=== PATIENT | female | born 1955 | race Caucasian/White ===

== ENCOUNTER 2017-12-21 05:25 | Emergency (ER) | payer OTHER ==
[~2017-12-21] VITALS: Ht 154.9 cm; Wt 65.8 kg
[2017-12-21] MEDS ORDERED: ACETAMINOPHEN 500 MG TAB PO ONE (06:30)
[2017-12-21] MEDS ORDERED: cloNIDine HCL 0.1 MG TAB PO ONE (06:30)
[2017-12-21 06:39] LABS: Basophils # (auto) 0 uL; Basophils % (auto) 0.4 % (0.0-2.0); Eosinophils # (auto) 0.1 uL; Eosinophils % (auto) 1.2 % (0.0-7.0); Hematocrit 44.1 % (36.0-46.0); Hemoglobin 15.1 g/dL (12.2-16.2); Lymphocytes # (auto) 1.9 uL; Mean Corpuscular Hemoglobin 29.3 pg (28.0-32.0); Mean Corpuscular Hgb Conc. 34.3 g/dL (32.0-36.0); Mean Corpuscular Volume 85.4 fL (80.0-100.0); Monocytes # (auto) 0.4 uL; Monocytes % (auto) 5.2 % (0.0-12.0); Neutrophils # (auto) 5.7 uL; Neutrophils % (auto) 70.2 % (37.0-80.0); Nucleated Red Blood Cells % 0.1 %; Platelet Count (auto) 323 10^3/uL (140-450); Red Blood Cells 5.16 10^6/uL (4.0-5.20); Red Cell Distribution Width 13.1 % (11.8-14.3); White Blood Cell 8.2 10^3/uL (4.4-10.8)
[2017-12-21 06:41] LABS: Urine Bacteria NONE SEEN /hpf (None Seen); Urine Blood Negative /uL (Negative); Urine Specific Gravity 1.004 (1.001-1.035); Urine WBC 2 /hpf (0 - 5)
[2017-12-21 06:45] LABS: INR 0.96 (0.9-1.15); Partial Thromboplastin Time 27.3 sec (23.78-33.04); Prothrombin Time 10.3 sec (9.27-12.13)
[2017-12-21 06:46] LABS: Alanine Aminotransferase 29 U/L (13-56); Albumin 3.6 g/dL (3.4-5.0); Anion Gap 11 (5-15); Aspartate Aminotransferase 24 U/L (15-37); BUN/Creatinine Ratio 13.9; Blood Urea Nitrogen 10 mg/dL (7-18); Calcium 8.3 mg/dL (8.5-10.1); Carbon Dioxide 24 mmol/L (21-32); Chloride 102 mmol/L (98-107); GFR African American 106 mL/min; GFR Non-African American 88 mL/min; Glucose 113 mg/dL (74-106); Magnesium 2.1 mg/dL (1.6-2.6); Potassium 3.5 mmol/L (3.5-5.1); Sodium 137 mmol/L (136-145)
[2017-12-21 06:51] LABS: Alkaline Phosphatase 120 U/L (45-117); Bilirubin, Total 0.7 mg/dL (0.2-1.0); Total Protein 8.8 g/dL (6.4-8.2)
[2017-12-21 07:33] VITALS: BP 143/91
== END 2017-12-21 09:26 | disposition home or self-care (01) ==
LOC: ER 05:39
DX: I10 Essential (primary) hypertension (principal); J32.9 Chronic sinusitis, unspecified
CPT/HCPCS: 36415; 70450; 71045; 80053; 81001; 83735; 83880; 84484; 85025; 85610; 85730; 93005

== ENCOUNTER 2022-01-14 22:04 | Emergency (ER) | payer OTHER ==
[~2022-01-14] VITALS: Ht 154.9 cm; Wt 59.0 kg
[2022-01-14 22:49] VITALS: BP 196/105
[2022-01-14] MEDS ORDERED: cloNIDine HCL 0.1 MG TAB PO ONE (23:00)
== END 2022-01-15 03:56 | disposition left against medical advice (07) ==
LOC: ER 22:04
DX: I10 Essential (primary) hypertension (principal); R07.89 Other chest pain; Z53.21 Procedure and treatment not carried out due to patient leaving prior to being seen by health care provider
CPT/HCPCS: 93005

== ENCOUNTER 2022-05-11 14:44 | Inpatient (IN) | payer OTHER ==
[~2022-05-11] VITALS: Ht 152.4 cm; Wt 57.8 kg
[2022-05-11 15:30] LABS: Basophils # (auto) 0 10 ^3/uL (0-0.2); Basophils % (auto) 0.3 % (0.0-2.0); Eosinophils # (auto) 0 10 ^3/uL (0-0.8); Hematocrit 49.4 % (36.0-46.0); Hemoglobin 16.7 g/dL (12.2-16.2); Lymphocytes # (auto) 1.1 10 ^3/uL (0.4-5.4); Lymphocytes % (auto) 21.9 % (10.0-50.0); Mean Corpuscular Hemoglobin 29.2 pg (28.0-32.0); Mean Corpuscular Hgb Conc. 33.9 g/dL (32.0-36.0); Mean Corpuscular Volume 86.1 fL (80.0-100.0); Monocytes # (auto) 0.4 10 ^3/uL (0-1.3); Monocytes % (auto) 9.2 % (0.0-12.0); Neutrophils # (auto) 3.3 10 ^3/uL (1.6-8.6); Neutrophils % (auto) 68.6 % (37.0-80.0); Nucleated Red Blood Cells % 0.2 %; Red Blood Cells 5.74 10^6/uL (4.0-5.20); Red Cell Distribution Width 12.6 % (11.8-14.3); White Blood Cell 4.8 10^3/uL (4.4-10.8)
[2022-05-11 15:59] LABS: Albumin 3.9 g/dL (3.4-5.0); BUN/Creatinine Ratio 9.8; Calcium 8.1 mg/dL (8.5-10.1); Potassium 4.1 mmol/L (3.5-5.1); Total Protein 8.4 g/dL (6.4-8.2)
[2022-05-11 16:10] LABS: Bilirubin, Total 0.5 mg/dL (0.2-1.0)
[2022-05-11 16:26] LABS: Urine Bacteria NONE SEEN /hpf (None Seen); Urine Blood 2+ /uL (Negative); Urine Specific Gravity 1.008 (1.001-1.035); Urine WBC <1 /hpf (0 - 5)
[2022-05-11] MEDS ORDERED: IOHEXOL 350 MG/ML 100ML IJ ONE ×3 (17:54→21:59)
[2022-05-11] MEDS ORDERED: AZITHROMYCIN 500MG/ 250ML 250 ML IV ONE (18:15)
[2022-05-11] MEDS ORDERED: cefTRIAXone 1GM/50ML D5W 50 ML IV ONE (18:15)
[2022-05-11] MEDS ORDERED: SODIUM CHLORIDE 0.9% 1,000 ML IV ONE (19:15)
[2022-05-11] MEDS ORDERED: ONDANSETRON HCL 4 MG/2 ML VIAL IV ONE (19:15)
[2022-05-11] MEDS ORDERED: ONDANSETRON HCL 4 MG/2 ML VIAL IV PRN (22:00)
[2022-05-11] MEDS ORDERED: SODIUM CHLORIDE 0.9% 1,000 ML IV SCH (22:00)
[2022-05-11] MEDS ORDERED: ACETAMINOPHEN 325 MG TAB PO PRN (22:00)
[2022-05-11] MEDS ORDERED: NITROGLYCERIN 0.4 MG SL TAB SL PRN (22:00)
[2022-05-11] MEDS ORDERED: cloNIDine HCL 0.1 MG TAB PO PRN (22:00)
[2022-05-11] MEDS ORDERED: MORPHINE SULFATE INJ 2 MG/ml SYRG IV PRN (22:00)
[2022-05-11] MEDS: TEMAZEPAM 15 MG CAP PO PRN (23:08)
[2022-05-12] VITALS (7 sets, daily range): BP systolic 113–135; BP diastolic 71–85
[2022-05-12] MEDS: cefTRIAXone 1GM/50ML D5W 50 ML IV SCH (09:00)
[2022-05-12 09:07] LABS: Basophils # (auto) 0 10 ^3/uL (0-0.2); Basophils % (auto) 0.1 % (0.0-2.0); Eosinophils # (auto) 0 10 ^3/uL (0-0.8); Hematocrit 46.7 % (36.0-46.0); Lymphocytes # (auto) 1.8 10 ^3/uL (0.4-5.4); Mean Corpuscular Hemoglobin 29.2 pg (28.0-32.0); Mean Corpuscular Hgb Conc. 34.3 g/dL (32.0-36.0); Mean Corpuscular Volume 85.2 fL (80.0-100.0); Monocytes # (auto) 0.6 10 ^3/uL (0-1.3); Monocytes % (auto) 6.5 % (0.0-12.0); Neutrophils # (auto) 6.8 10 ^3/uL (1.6-8.6); Neutrophils % (auto) 74.4 % (37.0-80.0); Nucleated Red Blood Cells % 0.2 %; Red Blood Cells 5.48 10^6/uL (4.0-5.20); Red Cell Distribution Width 12.9 % (11.8-14.3); White Blood Cell 9.2 10^3/uL (4.4-10.8)
[2022-05-12 09:35] LABS: BUN/Creatinine Ratio 14.5; Calcium 7.7 mg/dL (8.5-10.1); Potassium 3.7 mmol/L (3.5-5.1)
[2022-05-12] MEDS ORDERED: ATENOLOL 50 MG TAB PO SCH (10:00)
[2022-05-12] MEDS: ENOXAPARIN SOD 40 MG/0.4 ML SYRINGE SC SCH (10:00)
[2022-05-12] MEDS ORDERED: LOSARTAN POTASSIUM 50 MG TAB PO SCH (10:00)
[2022-05-12] MEDS: AZITHROMYCIN 500MG/ 250ML 250 ML IV SCH (10:18)
[2022-05-12] MEDS: PANTOPRAZOLE 40 MG TAB PO SCH (10:19)
[2022-05-12] MEDS ORDERED: MAGNESIUM SULFATE 1GM/100ML 100 ML IV ONE (13:30)
[2022-05-12] MEDS: TEMAZEPAM 15 MG CAP PO PRN (20:27)
[2022-05-12] MEDS: ASCORBIC ACID 500 MG TAB PO SCH (21:20)
[2022-05-13 05:00] VITALS: BP 121/68
[2022-05-13 06:26] LABS: Magnesium 2.3 mg/dL (1.6-2.6)
[2022-05-13 08:00] VITALS: BP 115/67
[2022-05-13] MEDS: cefTRIAXone 1GM/50ML D5W 50 ML IV SCH (08:57)
[2022-05-13 09:00] VITALS: BP 115/67
[2022-05-13] MEDS ORDERED: REMDESIVIR PER PHARMACY 0 ML IV SCH (09:45)
[2022-05-13] MEDS ORDERED: ALPRAZolam 0.25 MG TAB PO PRN (10:00)
[2022-05-13] MEDS ORDERED: DexAMETHasone SOD PHOS 10MG/1ML VIAL INJ IV SCH (10:00)
[2022-05-13] MEDS ORDERED: ATENOLOL 50 MG TAB PO SCH (10:00)
[2022-05-13] MEDS: AZITHROMYCIN 500MG/ 250ML 250 ML IV SCH (11:13)
[2022-05-13] MEDS: DexAMETHasone SOD PHOS 10MG/1ML VIAL INJ IV SCH (11:15)
[2022-05-13] MEDS: PANTOPRAZOLE 40 MG TAB PO SCH (11:16)
[2022-05-13] MEDS: ENOXAPARIN SOD 40 MG/0.4 ML SYRINGE SC SCH (11:17)
[2022-05-13] MEDS: CHOLECALCIFEROL (VITD3) 2,000 UNIT CAP/TAB PO SCH (11:17)
[2022-05-13] MEDS: ATENOLOL 25 MG TAB PO SCH (11:17)
[2022-05-13] MEDS: ASCORBIC ACID 500 MG TAB PO SCH ×2 (11:17→21:25)
[2022-05-13] MEDS: ZINC SULFATE 220mg CAP or TAB PO SCH (11:18)
[2022-05-13 13:00] VITALS: BP_SYST 114; BP_SYST 129; BP_DIAS 71; BP_DIAS 80
[2022-05-13] MEDS ORDERED: REMDESIVIR 100mg 100 MG in SODIUM CHL 0.9% 230 ML IV SCH (15:00)
[2022-05-13] MEDS ORDERED: REMDESIVIR 200 MG in NS 210ml LOADING DOSE ADULT IV ONE (15:00)
[2022-05-13 17:00] VITALS: BP 129/80
[2022-05-13] MEDS: TEMAZEPAM 15 MG CAP PO PRN (20:46)
[2022-05-13 21:59] VITALS: BP 121/67
[2022-05-14 05:00] VITALS: BP 145/85
[2022-05-14 09:00] VITALS: BP 148/79
[2022-05-14] MEDS: PANTOPRAZOLE 40 MG TAB PO SCH (10:00)
[2022-05-14] MEDS: ENOXAPARIN SOD 40 MG/0.4 ML SYRINGE SC SCH (10:00)
[2022-05-14] MEDS: cefTRIAXone 1GM/50ML D5W 50 ML IV SCH (11:01)
[2022-05-14] MEDS: DexAMETHasone SOD PHOS 10MG/1ML VIAL INJ IV SCH (11:01)
[2022-05-14] MEDS: ZINC SULFATE 220mg CAP or TAB PO SCH (11:02)
[2022-05-14] MEDS: ATENOLOL 25 MG TAB PO SCH (11:04)
[2022-05-14] MEDS: ASCORBIC ACID 500 MG TAB PO SCH ×2 (11:04→22:20)
[2022-05-14] MEDS: CHOLECALCIFEROL (VITD3) 2,000 UNIT CAP/TAB PO SCH (11:05)
[2022-05-14] MEDS: AZITHROMYCIN 500MG/ 250ML 250 ML IV SCH (11:34)
[2022-05-14] MEDS: ALBUTEROL SULF HFA 90MCG INH 200DOSE IN SCH ×2 (12:05→20:05)
[2022-05-14 13:00] VITALS: BP 134/81
[2022-05-14] MEDS: REMDESIVIR 100mg 100 MG in SODIUM CHL 0.9% 230 ML IV SCH (16:55)
[2022-05-14 17:00] VITALS: BP 129/71
[2022-05-14 18:23] VITALS: BP 129/71
[2022-05-14 22:00] VITALS: BP 141/79
[2022-05-14] MEDS ORDERED: MELATONIN 5 MG TAB PO SCH (22:00)
[2022-05-15] MEDS: TEMAZEPAM 15 MG CAP PO PRN (02:00)
[2022-05-15 05:07] VITALS: BP 145/82
[2022-05-15] MEDS: ALBUTEROL SULF HFA 90MCG INH 200DOSE IN SCH ×2 (07:20→14:30)
[2022-05-15] MEDS: ENOXAPARIN SOD 40 MG/0.4 ML SYRINGE SC SCH (08:10)
[2022-05-15] MEDS: DexAMETHasone SOD PHOS 10MG/1ML VIAL INJ IV SCH (08:15)
[2022-05-15] MEDS: cefTRIAXone 1GM/50ML D5W 50 ML IV SCH (08:15)
[2022-05-15] MEDS: ZINC SULFATE 220mg CAP or TAB PO SCH (08:15)
[2022-05-15] MEDS: AZITHROMYCIN 500MG/ 250ML 250 ML IV SCH (08:15)
[2022-05-15] MEDS: ATENOLOL 25 MG TAB PO SCH (08:16)
[2022-05-15] MEDS: CHOLECALCIFEROL (VITD3) 2,000 UNIT CAP/TAB PO SCH (08:17)
[2022-05-15 09:00] VITALS: BP 155/57
[2022-05-15] MEDS: ASCORBIC ACID 500 MG TAB PO SCH (10:00)
[2022-05-15] MEDS ORDERED: AZITTAB PO (11:10)
[2022-05-15 12:11] VITALS: BP 150/75
[2022-05-15 12:54] LABS: Albumin 2.9 g/dL (3.4-5.0); Bilirubin, Total 0.2 mg/dL (0.2-1.0); Calcium 8.1 mg/dL (8.5-10.1); Potassium 3.8 mmol/L (3.5-5.1); Total Protein 7.1 g/dL (6.4-8.2)
[2022-05-15 13:00] VITALS: BP 150/75
[2022-05-15] MEDS: REMDESIVIR 100mg 100 MG in SODIUM CHL 0.9% 230 ML IV SCH (15:00)
== END 2022-05-15 16:43 | disposition home or self-care (01) | DRG 137 ==
LOC: ER 14:47 → TELE 21:55 → TELE-EAST 05-12 02:20
PROVIDERS: ADMIT Nurse Practitioner; ATTEND Nurse Practitioner Acute Care
PROC: XW033E5 Introduction of Remdesivir Anti-infective into Peripheral Vein, Percutaneous Approach, New Technology Group 5 (ICD-10-PCS; principal; 2022-05-13)
DX: U07.1 COVID-19 (principal); J96.01 Acute respiratory failure with hypoxia; J12.82 Pneumonia due to coronavirus disease 2019; I10 Essential (primary) hypertension; E87.1 Hypo-osmolality and hyponatremia; Z82.49 Family history of ischemic heart disease and other diseases of the circulatory system
CPT/HCPCS: 36415; 36600; 71045; 71275; 80048; 80053; 80061; 81001; 82805; 83036; 83735; 83880; 84295; 84443; 84484; 85025; 87426; 93005; 93306; 94640; 96361; 96365; 96367; G0378; J0696; J1100

== ENCOUNTER 2022-05-16 17:54 | Inpatient (IN) | payer OTHER ==
[~2022-05-16] VITALS: Ht 160 cm; Wt 62.8 kg
[~2022-05-16 17:54] MED LIST: AZITTAB PO
[2022-05-16] MEDS ORDERED: SODIUM CHLORIDE 0.9% 1,000 ML IV ONE (18:00)
[2022-05-16 18:35] LABS: Basophils # (auto) 0 10 ^3/uL (0-0.2); Basophils % (auto) 0.2 % (0.0-2.0); Eosinophils # (auto) 0.1 10 ^3/uL (0-0.8); Eosinophils % (auto) 1.1 % (0.0-7.0); Hematocrit 49.3 % (36.0-46.0); Hemoglobin 16.6 g/dL (12.2-16.2); Lymphocytes # (auto) 2.6 10 ^3/uL (0.4-5.4); Lymphocytes % (auto) 39.7 % (10.0-50.0); Mean Corpuscular Hgb Conc. 33.7 g/dL (32.0-36.0); Monocytes % (auto) 14.5 % (0.0-12.0); Neutrophils # (auto) 2.9 10 ^3/uL (1.6-8.6); Neutrophils % (auto) 44.5 % (37.0-80.0); Nucleated Red Blood Cells % 0.1 %; Red Blood Cells 5.73 10^6/uL (4.0-5.20); Red Cell Distribution Width 12.7 % (11.8-14.3); White Blood Cell 6.6 10^3/uL (4.4-10.8)
[2022-05-16 18:59] LABS: Albumin 3.5 g/dL (3.4-5.0); BUN/Creatinine Ratio 16.2; Bilirubin, Total 0.3 mg/dL (0.2-1.0); Calcium 8.2 mg/dL (8.5-10.1); Potassium 4.5 mmol/L (3.5-5.1); Total Protein 7.6 g/dL (6.4-8.2)
[2022-05-16] MEDS ORDERED: cefTRIAXone 1GM/50ML D5W 50 ML IV ONE (20:30)
[2022-05-16] MEDS ORDERED: metroNIDAZOLE 500MG/100ML 100 ML IV ONE (20:30)
[2022-05-16] MEDS ORDERED: MORPHINE SULFATE INJ 2 MG/ml SYRG IV PRN ×2 (23:30)
[2022-05-16] MEDS ORDERED: HYDROcodone-ACET 5/325MG TAB PO PRN (23:30)
[2022-05-16] MEDS ORDERED: ONDANSETRON HCL 4 MG/2 ML VIAL IV PRN (23:30)
[2022-05-16] MEDS ORDERED: DOCUSATE SOD 100 MG CAP PO PRN (23:30)
[2022-05-16] MEDS ORDERED: NITROGLYCERIN 0.4 MG SL TAB SL PRN (23:30)
[2022-05-16] MEDS: SODIUM CHLORIDE 0.9% 1,000 ML IV SCH (23:45)
[2022-05-16 23:47] LABS: Urine Bacteria FEW /hpf (None Seen); Urine Blood Negative /uL (Negative); Urine Mucus FEW (None Seen); Urine Specific Gravity 1.013 (1.001-1.035); Urine WBC 8 /hpf (0 - 5)
[2022-05-17] MEDS: AZITHROMYCIN 500MG/ 250ML 250 ML IV SCH (01:02)
[2022-05-17 04:38] LABS: Basophils # (auto) 0 10 ^3/uL (0-0.2); Basophils % (auto) 0.6 % (0.0-2.0); Eosinophils # (auto) 0.1 10 ^3/uL (0-0.8); Eosinophils % (auto) 2.2 % (0.0-7.0); Hematocrit 46.4 % (36.0-46.0); Hemoglobin 15.7 g/dL (12.2-16.2); Lymphocytes # (auto) 2.5 10 ^3/uL (0.4-5.4); Lymphocytes % (auto) 38.5 % (10.0-50.0); Mean Corpuscular Hemoglobin 29.1 pg (28.0-32.0); Mean Corpuscular Hgb Conc. 33.8 g/dL (32.0-36.0); Monocytes % (auto) 15.6 % (0.0-12.0); Neutrophils # (auto) 2.7 10 ^3/uL (1.6-8.6); Neutrophils % (auto) 43.1 % (37.0-80.0); Nucleated Red Blood Cells % 0.1 %; Red Blood Cells 5.39 10^6/uL (4.0-5.20); White Blood Cell 6.4 10^3/uL (4.4-10.8)
[2022-05-17 05:39] LABS: Albumin 3.3 g/dL (3.4-5.0); Potassium 4.1 mmol/L (3.5-5.1)
[2022-05-17 05:41] LABS: BUN/Creatinine Ratio 15.4
[2022-05-17 05:43] LABS: Bilirubin, Total 0.6 mg/dL (0.2-1.0)
[2022-05-17] MEDS: FAMOTIDINE (10MG/ML) 2ML VL IV SCH ×2 (09:46→22:56)
[2022-05-17] MEDS: ASPirin 81 mg TAB PO SCH (09:46)
[2022-05-17] MEDS ORDERED: ATE50T GT (11:18)
[2022-05-17] MEDS ORDERED: CHOLECALCIFEROL (VITD3) 2,000 UNIT CAP/TAB PO ONE (13:00)
[2022-05-17] MEDS ORDERED: ZINC SULFATE 220mg CAP or TAB PO ONE (13:00)
[2022-05-17] MEDS: LORazepam 0.5 MG TAB PO PRN (13:57)
[2022-05-17] MEDS: SODIUM CHLORIDE 0.9% 1,000 ML IV SCH (17:08)
[2022-05-17 20:00] VITALS: BP 149/90
[2022-05-17 21:20] VITALS: BP 149/90
[2022-05-17 22:00] VITALS: BP 149/90
[2022-05-17] MEDS: cefTRIAXone 1GM/50ML D5W 50 ML IV SCH (22:55)
[2022-05-17] MEDS: ASCORBIC ACID 500 MG TAB PO SCH (22:56)
[2022-05-17] MEDS: LOSARTAN POTASSIUM 50 MG TAB PO SCH (22:58)
[2022-05-18] VITALS (7 sets, daily range): BP systolic 120–147; BP diastolic 81–94
[2022-05-18] MEDS: AZITHROMYCIN 500MG/ 250ML 250 ML IV SCH ×2 (00:46→23:11)
[2022-05-18] MEDS: SODIUM CHLORIDE 0.9% 1,000 ML IV SCH (09:05)
[2022-05-18] MEDS: FAMOTIDINE (10MG/ML) 2ML VL IV SCH ×2 (10:00→22:00)
[2022-05-18] MEDS: DexAMETHasone SOD PHOS 10MG/1ML VIAL INJ IV SCH (10:00)
[2022-05-18] MEDS: ASCORBIC ACID 500 MG TAB PO SCH ×2 (11:21→23:12)
[2022-05-18] MEDS: ASPirin 81 mg TAB PO SCH (11:22)
[2022-05-18] MEDS: ZINC SULFATE 220mg CAP or TAB PO SCH (11:22)
[2022-05-18] MEDS: CHOLECALCIFEROL (VITD3) 2,000 UNIT CAP/TAB PO SCH (11:22)
[2022-05-18] MEDS: LOSARTAN POTASSIUM 50 MG TAB PO SCH ×2 (11:30→23:12)
[2022-05-18] MEDS: LORazepam 0.5 MG TAB PO PRN (13:21)
[2022-05-18] MEDS: ACETAMINOPHEN 325 MG TAB PO PRN (13:28)
[2022-05-18] MEDS: cefTRIAXone 1GM/50ML D5W 50 ML IV SCH (21:09)
[2022-05-18] MEDS ORDERED: [UNRECOGNIZED DRUG - OTHER] PO SCH (22:00)
[2022-05-18] MEDS ORDERED: PATIENTS OWN MEDICATION PO SCH (22:00)
[2022-05-19] MEDS: LORazepam 0.5 MG TAB PO PRN ×2 (01:32→18:27)
[2022-05-19] MEDS: SODIUM CHLORIDE 0.9% 1,000 ML IV SCH ×2 (01:38→18:25)
[2022-05-19 05:00] VITALS: BP 110/66
[2022-05-19 09:00] VITALS: BP 120/81
[2022-05-19] MEDS: FAMOTIDINE (10MG/ML) 2ML VL IV SCH ×2 (10:00→22:00)
[2022-05-19] MEDS: CHOLECALCIFEROL (VITD3) 2,000 UNIT CAP/TAB PO SCH (10:00)
[2022-05-19] MEDS: ASCORBIC ACID 500 MG TAB PO SCH ×2 (10:00→22:46)
[2022-05-19] MEDS: DexAMETHasone SOD PHOS 10MG/1ML VIAL INJ IV SCH (10:27)
[2022-05-19] MEDS: ZINC SULFATE 220mg CAP or TAB PO SCH (10:33)
[2022-05-19] MEDS: LOSARTAN POTASSIUM 50 MG TAB PO SCH ×2 (10:34→22:47)
[2022-05-19] MEDS: ASPirin 81 mg TAB PO SCH (10:34)
[2022-05-19 13:07] VITALS: BP 134/81
[2022-05-19] MEDS ORDERED: METOPROLOL TARTRATE 1MG/1ML-5ML VIAL IV ONE (16:15)
[2022-05-19 16:22] VITALS: BP 146/103
[2022-05-19 20:00] VITALS: BP 138/91
[2022-05-19] MEDS: cefTRIAXone 1GM/50ML D5W 50 ML IV SCH (20:17)
[2022-05-19] MEDS: ACETAMINOPHEN 325 MG TAB PO PRN (20:17)
[2022-05-19 22:00] VITALS: BP 116/77
[2022-05-19] MEDS ORDERED: [UNRECOGNIZED DRUG - OTHER] PO SCH (22:00)
[2022-05-19] MEDS: AZITHROMYCIN 500MG/ 250ML 250 ML IV SCH (22:45)
[2022-05-20 04:42] VITALS: BP 138/66
[2022-05-20 09:00] VITALS: BP 111/61
[2022-05-20] MEDS: FAMOTIDINE (10MG/ML) 2ML VL IV SCH (10:00)
[2022-05-20] MEDS: LOSARTAN POTASSIUM 50 MG TAB PO SCH (10:00)
[2022-05-20] MEDS: CHOLECALCIFEROL (VITD3) 2,000 UNIT CAP/TAB PO SCH (10:12)
[2022-05-20] MEDS: ASCORBIC ACID 500 MG TAB PO SCH (10:12)
[2022-05-20] MEDS: ZINC SULFATE 220mg CAP or TAB PO SCH (10:12)
[2022-05-20] MEDS: ASPirin 81 mg TAB PO SCH (10:12)
[2022-05-20] MEDS: DexAMETHasone SOD PHOS 10MG/1ML VIAL INJ IV SCH (10:13)
[2022-05-20] MEDS ORDERED: LORA0.5T20 PO (11:05)
[2022-05-20] MEDS ORDERED: CHOL20006 PO (11:05)
[2022-05-20] MEDS ORDERED: ZINC220C10 PO (11:05)
[2022-05-20] MEDS ORDERED: AZIT500T66 PO (11:05)
[2022-05-20] MEDS ORDERED: ASCO500C49 PO (11:05)
[2022-05-20 12:12] VITALS: BP 98/56
[2022-05-20 13:00] VITALS: BP 137/73
== END 2022-05-20 13:30 | disposition home or self-care (01) | DRG 137 ==
LOC: ER 17:54 → EDUNIT# 17:54 → EDBD 17:54 → TELE 23:31 → TELE-WESTW 05-17 17:38
PROVIDERS: ADMIT Nurse Practitioner Family; ATTEND Family Medicine
DX: U07.1 COVID-19 (principal); J12.82 Pneumonia due to coronavirus disease 2019; F41.9 Anxiety disorder, unspecified; I10 Essential (primary) hypertension; N39.0 Urinary tract infection, site not specified; Z82.49 Family history of ischemic heart disease and other diseases of the circulatory system
CPT/HCPCS: 36415; 70450; 71045; 80053; 81001; 84484; 85025; 85379; 87426; 93005; 96365; 96367; G0378; J0696; J1100; J3490

== ENCOUNTER 2024-03-03 14:36 | Emergency (ER) | payer SELFPAY ==
[~2024-03-03] VITALS: Ht 152.4 cm; Wt 59.8 kg
[~2024-03-03 14:36] MED LIST changes: +ASCO500C49 PO; +ATE50T GT; +AZIT500T66 PO; +CHOL20006 PO; +LORA-1121 PO; +ZINC220C10 PO
[2024-03-03 15:08] LABS: Urine Bacteria None Seen /hpf (None Seen)
[2024-03-03 15:28] VITALS: TEMP 98.6
[2024-03-03 15:32] LABS: Urine Blood Negative /uL (Negative); Urine Clarity Clear (Clear); Urine Color Light-Yellow (Yellow); Urine Protein, UAD TRACE (Negative); Urine Specific Gravity 1.022 (1.001-1.035); Urine Urobilinogen Normal (Negative); Urine WBC 2 /hpf (0 - 5)
[2024-03-03 15:33] VITALS: PULSE 114; RESP 16; O2SAT 94
[2024-03-03] MEDS: cloNIDine HCL 0.1 MG TAB PO ONE (15:33)
[2024-03-03] MEDS ORDERED: CIPR-173 PO (16:33)
[2024-03-03 16:54] VITALS: BP 174/97; PULSE 100; RESP 19; O2SAT 98
[2024-03-09] MEDS ORDERED: LISI10TA34 PO (13:24)
== END 2024-03-03 16:32 | disposition home or self-care (01) ==
LOC: ER 14:36
DX: N39.0 Urinary tract infection, site not specified (principal); I16.0 Hypertensive urgency; R22.9 Localized swelling, mass and lump, unspecified; Z79.899 Other long term (current) drug therapy
CPT/HCPCS: 74176; 81001; 93005

== ENCOUNTER 2024-03-08 18:54 | Emergency (ER) | payer MEDICAID, OTHER ==
[~2024-03-08] VITALS: Ht 167.6 cm; Wt 60.5 kg
[~2024-03-08 18:54] MED LIST changes: +CIPR-173 PO
[2024-03-08] MEDS: cloNIDine HCL 0.1 MG TAB PO ONE (19:12)
[2024-03-08 19:37] LABS: Basophils # (auto) 0 10 ^3/uL (0-0.2); Basophils % (auto) 0.5 % (0.0-2.0); Eosinophils # (auto) 0.2 10 ^3/uL (0-0.8); Eosinophils % (auto) 1.7 % (0.0-7.0); Hematocrit 47.5 % (36.0-46.0); Hemoglobin 16.5 g/dL (12.2-16.2); Lymphocytes % (auto) 42.3 % (10.0-50.0); Mean Corpuscular Hemoglobin 30.5 pg (28.0-32.0); Mean Corpuscular Hgb Conc. 34.8 g/dL (32.0-36.0); Mean Corpuscular Volume 87.7 fL (80.0-100.0); Monocytes # (auto) 0.7 10 ^3/uL (0-1.3); Monocytes % (auto) 7.1 % (0.0-12.0); Neutrophils # (auto) 4.6 10 ^3/uL (1.6-8.6); Neutrophils % (auto) 48.4 % (37.0-80.0); Nucleated Red Blood Cells % 0.1 %; Platelet Count (auto) 325 10^3/uL (140-450); Red Blood Cells 5.41 10^6/uL (4.0-5.20); White Blood Cell 9.5 10^3/uL (4.4-10.8)
[2024-03-08 19:51] LABS: Alanine Aminotransferase 17 U/L (7-40); Albumin 4.5 g/dL (3.2-4.8); Alkaline Phosphatase 113 U/L (46-116); Anion Gap 5 (5-15); Aspartate Aminotransferase 19 U/L (13-40); BUN/Creatinine Ratio 8.8 (10.0-20.0); Bilirubin, Total 0.8 mg/dL (0.2-1.0); Blood Urea Nitrogen 6 mg/dL (9-23); Calcium 9.4 mg/dL (8.7-10.4); Carbon Dioxide 25 mmol/L (20-30); Chloride 99 mmol/L (98-107); Glucose 113 mg/dL (74-106); Potassium 3.8 mmol/L (3.5-5.1); Sodium 129 mmol/L (136-145)
[2024-03-08] MEDS ORDERED: ATOR80TA PO (20:02)
[2024-03-08] MEDS ORDERED: ASPI325T6 PO (20:03)
[2024-03-08] MEDS ORDERED: LISI2.5T47 PO (20:04)
[2024-03-08] MEDS ORDERED: LEVO500T91 PO (20:10)
[2024-03-08 21:00] VITALS: BP 167/82; PULSE 98; RESP 18; TEMP 98.7; O2SAT 97
[2024-03-09] MEDS ORDERED: LISI10TA34 PO (13:24)
== END 2024-03-08 23:36 | disposition home or self-care (01) ==
LOC: ER 18:54
DX: J18.9 Pneumonia, unspecified organism (principal); I10 Essential (primary) hypertension; H92.03 Otalgia, bilateral
CPT/HCPCS: 36415; 71045; 80053; 84484; 85025; 93005

== ENCOUNTER 2024-03-11 20:53 | Inpatient (IN) | payer MEDICAID ==
[~2024-03-11] VITALS: Ht 152.4 cm; Wt 61.4 kg
[~2024-03-11 20:53] MED LIST changes: +ASPI325T6 PO; +ATOR80TA PO; +LEVO500T91 PO; +LISI10TA34 PO; +LISI2.5T47 PO
[2024-03-11 21:11] LABS: Basophils # (auto) 0.1 10 ^3/uL (0-0.2); Basophils % (auto) 0.4 % (0.0-2.0); Eosinophils # (auto) 0.3 10 ^3/uL (0-0.8); Eosinophils % (auto) 2.5 % (0.0-7.0); Hematocrit 46.6 % (36.0-46.0); Hemoglobin 15.8 g/dL (12.2-16.2); Lymphocytes # (auto) 5.7 10 ^3/uL (0.4-5.4); Lymphocytes % (auto) 43.5 % (10.0-50.0); Mean Corpuscular Hemoglobin 30.4 pg (28.0-32.0); Mean Corpuscular Volume 89.5 fL (80.0-100.0); Monocytes # (auto) 0.9 10 ^3/uL (0-1.3); Monocytes % (auto) 6.7 % (0.0-12.0); Neutrophils # (auto) 6.1 10 ^3/uL (1.6-8.6); Neutrophils % (auto) 46.9 % (37.0-80.0); Nucleated Red Blood Cells % 0.2 %; Platelet Count (auto) 329 10^3/uL (140-450); Red Cell Distribution Width 13.7 % (11.8-14.3); White Blood Cell 13.1 10^3/uL (4.4-10.8)
[2024-03-11 21:30] LABS: Alanine Aminotransferase 24 U/L (7-40); Albumin 4.4 g/dL (3.2-4.8); Alkaline Phosphatase 163 U/L (46-116); Anion Gap 9 (5-15); Aspartate Aminotransferase 17 U/L (13-40); BUN/Creatinine Ratio 13.7 (10.0-20.0); Bilirubin, Total 0.4 mg/dL (0.2-1.0); Blood Urea Nitrogen 13 mg/dL (9-23); Calcium 9.4 mg/dL (8.7-10.4); Carbon Dioxide 23 mmol/L (20-30); Chloride 103 mmol/L (98-107); Glucose 171 mg/dL (74-106); Potassium 3.6 mmol/L (3.5-5.1)
[2024-03-11] MEDS: SODIUM CHLORIDE 0.9% 1,000 ML IV ONE (21:30)
[2024-03-11 21:31] LABS: Total Protein 7.7 g/dL (5.7-8.2)
[2024-03-11 21:32] LABS: Sodium 135 mmol/L (136-145)
[2024-03-11 21:38] LABS: Lactic Acid w/Reflex 3.3 mmol/L (0.4-2.0)
[2024-03-11 21:45] VITALS: PULSE 111; RESP 20; O2SAT 97
[2024-03-11] MEDS: LORazepam 2MG/ML-1ML VIAL IV ONE (22:13)
[2024-03-11] MEDS: cefTRIAXone 1GM/50ML D5W 50 ML IV ONE (22:16)
[2024-03-11 22:28] LABS: Urine Bacteria FEW /hpf (None Seen); Urine Blood Negative /uL (Negative); Urine Clarity Clear (Clear); Urine Color Colorless (Yellow); Urine Protein, UAD Negative (Negative); Urine Specific Gravity 1.006 (1.001-1.035); Urine Urobilinogen Normal (Negative); Urine WBC 3 /hpf (0 - 5)
[2024-03-11 22:30] LABS: Amphetamine Screen, Urine Neg (NEGATIVE); Barbiturate Scree,Urine Neg (NEGATIVE); Cannabinoid Screen, Urine Pos (NEGATIVE); Cocaine Screen, Urine Neg (NEGATIVE); Opiate Scree,Urine Neg (NEGATIVE); Phencyclidine Screen, Urine Neg (NEGATIVE)
[2024-03-11 22:56] LABS: Benzodiazephine Screen, Urine Neg (NEGATIVE)
[2024-03-12] MEDS ORDERED: hydrALAZINE HCL 20 MG/ML VL IV PRN (00:15)
[2024-03-12] MEDS: DOXYCYCLINE 100MG/250ML 250 ML IV SCH (00:15)
[2024-03-12] MEDS ORDERED: ACETAMINOPHEN 325 MG TAB PO PRN (00:15)
[2024-03-12] MEDS ORDERED: DOCUSATE SOD 100 MG CAP PO PRN (00:15)
[2024-03-12] MEDS ORDERED: ONDANSETRON HCL 4 MG/2 ML VIAL IV PRN (00:15)
[2024-03-12] MEDS: SODIUM CHLORIDE 0.9% 1,000 ML IV SCH (00:15)
[2024-03-12] MEDS: IOHEXOL 350 MG/ML 100ML IJ ONE (00:53)
[2024-03-12] MEDS ORDERED: NITROGLYCERIN 0.4 MG SL TAB SL PRN (05:30)
[2024-03-12] MEDS ORDERED: MORPHINE SULFATE INJ 2 MG/ml SYRG IV PRN (05:30)
[2024-03-12 07:40] VITALS: PULSE 94; RESP 16; O2SAT 99
[2024-03-12] MEDS: ASPirin 81 mg TAB PO SCH (10:09)
[2024-03-12] MEDS: METOPROLOL TARTRATE 25 MG TAB PO SCH (10:11)
[2024-03-12] MEDS: MAGNESIUM SULFATE 1GM/100ML 100 ML IV ONE (12:04)
[2024-03-12 14:36] LABS: COVID19 ANTIGEN SOFIA FIA NEGATIVE (NEGATIVE)
[2024-03-12 14:37] LABS: Rapid Influenza A Negative (Negative); Rapid Influenza B Negative (Negative)
[2024-03-12] MEDS: LISINOPRIL 5 MG TAB PO SCH (16:45)
[2024-03-12 17:20] VITALS: BP 158/83; PULSE 86; RESP 18; TEMP 98.9; O2SAT 95
[2024-03-12 17:50] VITALS: BP 158/83; PULSE 86; RESP 18; TEMP 98.9; O2SAT 95
[2024-03-12 20:00] VITALS: PULSE 80; PULSE 92; RESP 18; O2SAT 96
[2024-03-12] MEDS: HYDROcodone-ACET 5/325MG TAB PO PRN (20:31)
[2024-03-12 21:00] VITALS: BP 140/98; PULSE 92; RESP 18; TEMP 98.2; O2SAT 96
[2024-03-12] MEDS: ATORVASTATIN 20 MG TAB PO SCH (22:00)
[2024-03-13] MEDS: LORazepam 2MG/ML-1ML VIAL IV PRN (00:08)
[2024-03-13 01:00] VITALS: BP 145/87; PULSE 78; RESP 18; TEMP 98; O2SAT 94
[2024-03-13 05:00] VITALS: BP 139/90; PULSE 77; RESP 18; TEMP 97.7; O2SAT 97
[2024-03-13 06:41] LABS: Basophils # (auto) 0 10 ^3/uL (0-0.2); Basophils % (auto) 0.5 % (0.0-2.0); Eosinophils # (auto) 0.5 10 ^3/uL (0-0.8); Eosinophils % (auto) 7.1 % (0.0-7.0); Lymphocytes # (auto) 2.7 10 ^3/uL (0.4-5.4); Lymphocytes % (auto) 35.8 % (10.0-50.0); Mean Corpuscular Hemoglobin 30.7 pg (28.0-32.0); Mean Corpuscular Hgb Conc. 35.1 g/dL (32.0-36.0); Mean Corpuscular Volume 87.6 fL (80.0-100.0); Monocytes # (auto) 0.6 10 ^3/uL (0-1.3); Monocytes % (auto) 7.8 % (0.0-12.0); Neutrophils # (auto) 3.7 10 ^3/uL (1.6-8.6); Neutrophils % (auto) 48.8 % (37.0-80.0); Nucleated Red Blood Cells % 0.1 %; Platelet Count (auto) 236 10^3/uL (140-450); Red Blood Cells 4.57 10^6/uL (4.0-5.20); White Blood Cell 7.5 10^3/uL (4.4-10.8)
[2024-03-13 07:12] LABS: Alanine Aminotransferase 10 U/L (7-40); Alkaline Phosphatase 75 U/L (46-116); Anion Gap 6 (5-15); Aspartate Aminotransferase 13 U/L (13-40); BUN/Creatinine Ratio 15.2 (10.0-20.0); Blood Urea Nitrogen 7 mg/dL (9-23); Calcium 7.1 mg/dL (8.7-10.4); Carbon Dioxide 22 mmol/L (20-30); Chloride 108 mmol/L (98-107); Glucose 87 mg/dL (74-106); Potassium 2.9 mmol/L (3.5-5.1); Sodium 136 mmol/L (136-145)
[2024-03-13 07:13] LABS: Bilirubin, Total 0.5 mg/dL (0.2-1.0); Total Protein 5.2 g/dL (5.7-8.2)
[2024-03-13 08:00] VITALS: PULSE 72; PULSE 77; RESP 16; O2SAT 98
[2024-03-13 08:45] VITALS: BP 136/75; PULSE 70; RESP 16; TEMP 98; O2SAT 98
[2024-03-13] MEDS ORDERED: POTASSIUM CHL 20MEQ/100ML 100 ML IV SCH (08:45)
[2024-03-13] MEDS: POTASSIUM CHLORIDE 60 MEQ, LIDOCAINE 1% (LOCAL ANESTH.) 6 ML in SODIUM CHL 0.9% 500 ML IV ONE (11:06)
[2024-03-13 12:42] VITALS: BP 155/91; PULSE 80; RESP 17; TEMP 98.6; O2SAT 96
[2024-03-13] MEDS ORDERED: DOXY100C79 PO (13:07)
[2024-03-13] MEDS ORDERED: MET25T PO (13:07)
[2024-03-13 15:44] LABS: Free T3 3.64 pg/mL (2.3-4.2)
[2024-03-13 15:45] LABS: Free T4 (Free Thyroxine) 1.52 ng/dL (0.89-1.76)
[2024-03-13 16:22] VITALS: BP 139/99; PULSE 72; RESP 16; TEMP 97.6; O2SAT 98
== END 2024-03-13 18:50 | disposition home or self-care (01) | DRG 137 ==
LOC: ER 20:53 → TELE 03-12 05:25 → TELE-CENTR 03-12 17:10
PROVIDERS: ADMIT Nurse Practitioner Family; ATTEND Nurse Practitioner Acute Care
DX: J15.69 Pneumonia due to other Gram-negative bacteria (principal); I21.A1 Myocardial infarction type 2; E87.20 Acidosis, unspecified; Z20.822 Contact with and (suspected) exposure to COVID-19; E78.5 Hyperlipidemia, unspecified; F41.9 Anxiety disorder, unspecified; I16.0 Hypertensive urgency; J15.9 Unspecified bacterial pneumonia; J84.9 Interstitial pulmonary disease, unspecified; I47.19 Other supraventricular tachycardia; E07.9 Disorder of thyroid, unspecified; Z79.899 Other long term (current) drug therapy; D72.829 Elevated white blood cell count, unspecified
CPT/HCPCS: 36415; 71045; 71275; 80053; 80307; 81001; 83036; 83605; 83735; 83880; 84439; 84443; 84481; 84484; 85025; 85379; 87426; 87804; 93005; 93306; 96361; 96365; 96367; 96375; 99291; G0378; J2001; J3490

== ENCOUNTER 2024-03-15 18:45 | Emergency (ER) | payer MEDICAID ==
[~2024-03-15] VITALS: Ht 154.9 cm; Wt 59.0 kg
[~2024-03-15 18:45] MED LIST changes: -ASCO500C49 PO; -ATE50T GT; -AZIT500T66 PO; -AZITTAB PO; -CHOL20006 PO; +DOXY100C79 PO; -LISI2.5T47 PO; -LORA-1121 PO; +MET25T PO; -ZINC220C10 PO
[2024-03-15 19:25] LABS: Basophils # (auto) 0 10 ^3/uL (0-0.2); Basophils % (auto) 0.4 % (0.0-2.0); Eosinophils # (auto) 0.1 10 ^3/uL (0-0.8); Eosinophils % (auto) 1.4 % (0.0-7.0); Hematocrit 48.2 % (36.0-46.0); Hemoglobin 16.6 g/dL (12.2-16.2); Lymphocytes # (auto) 3.8 10 ^3/uL (0.4-5.4); Lymphocytes % (auto) 40.5 % (10.0-50.0); Mean Corpuscular Hemoglobin 30.4 pg (28.0-32.0); Mean Corpuscular Hgb Conc. 34.5 g/dL (32.0-36.0); Mean Corpuscular Volume 88.1 fL (80.0-100.0); Monocytes # (auto) 0.9 10 ^3/uL (0-1.3); Monocytes % (auto) 9.2 % (0.0-12.0); Neutrophils # (auto) 4.5 10 ^3/uL (1.6-8.6); Neutrophils % (auto) 48.5 % (37.0-80.0); Nucleated Red Blood Cells % 0.3 %; Platelet Count (auto) 302 10^3/uL (140-450); Red Blood Cells 5.48 10^6/uL (4.0-5.20); Red Cell Distribution Width 13.4 % (11.8-14.3); White Blood Cell 9.3 10^3/uL (4.4-10.8)
[2024-03-15 19:43] LABS: INR 1.12 (0.9-1.15); Partial Thromboplastin Time 27.8 SEC (24.5-34.5); Prothrombin Time 11.8 sec (9.3-11.8)
[2024-03-15 19:50] LABS: Alanine Aminotransferase 21 U/L (7-40); Albumin 4.4 g/dL (3.2-4.8); Alkaline Phosphatase 160 U/L (46-116); Anion Gap 8 (5-15); Aspartate Aminotransferase 21 U/L (13-40); BUN/Creatinine Ratio 11.1 (10.0-20.0); Bilirubin, Total 0.5 mg/dL (0.2-1.0); Blood Urea Nitrogen 8 mg/dL (9-23); Calcium 9.4 mg/dL (8.7-10.4); Carbon Dioxide 23 mmol/L (20-30); Chloride 99 mmol/L (98-107); Glucose 125 mg/dL (74-106); Magnesium 1.7 mg/dL (1.6-2.6); Potassium 4.4 mmol/L (3.5-5.1); Total Protein 7.7 g/dL (5.7-8.2)
[2024-03-15 20:07] LABS: Sodium 130 mmol/L (136-145)
[2024-03-15] MEDS ORDERED: LORA-1121 PO (21:20)
[2024-03-15] MEDS ORDERED: HYDR25CA PO (21:22)
[2024-03-15] MEDS: LORazepam 0.5 MG TAB PO ONE (21:51)
[2024-03-15 22:26] VITALS: BP 179/95; PULSE 109; RESP 16; TEMP 98.8; O2SAT 96
== END 2024-03-15 18:52 | disposition home or self-care (01) ==
LOC: ER 18:45
DX: R07.89 Other chest pain (principal); J98.4 Other disorders of lung; I10 Essential (primary) hypertension; F12.10 Cannabis abuse, uncomplicated
CPT/HCPCS: 36415; 71045; 80053; 83735; 83880; 84439; 84443; 84484; 85025; 85610; 85730; 93005

== ENCOUNTER 2024-09-16 10:50 | Emergency (ER) | payer MEDICAID, MEDICARE ==
[~2024-09-16] VITALS: Ht 152.4 cm; Wt 62.9 kg
[~2024-09-16 10:50] MED LIST changes: +HYDR25CA PO
--- NOTE | 2024-09-16 11:11 | ED.PDOC ---
HPI Comments HPI: Poor Historian. HPI: 69 year old female presents to the ED with chief complaint of HTN and neck pressure. Patient reports that she had went to urgent care this morning for a concern of paraspinal neck pressure and burning urination since today. Patient relays that at urgent care her blood pressure had read 190/112 and was sent to the ED for further evaluation. Patient states she read her blood pressure last night and it read in the 200s systolically. Patient notes she doubled up on her Lisinopril to 20mg this morning due to her blood pressure. Patient denies any fall, injury, dizziness, headache, chest pain, or SOB. Vitals: Temp: 97.3F BP: 177/86 HR: 100 RR: 20 spO2: 97% Past Medical History: HTN Insomnia, anxiety, TIA, pneumonia, pulmonary disease, hyperlipidemia, Past Surgical History: Denies Social History: Denies cigarette, ETOH, or drug use. Allergies: NKDA REVIEW OF SYSTEMS: CONSTITUTIONAL: Denies acute: fever, diaphoresis, chills, generalized weakness. HEAD: Denies acute: headache, photophobia Eyes: Denies acute: Double vision, vision loss, eye pain, eye discharge. EARS: Denies acute: tinnitus, hearing loss, ear discharge, ear pain, THROAT: Denies acute: sore throat, swelling, difficulty swallowing , pain with swallowing, change in voice. NECK: Denies acute: neck pain, neck swelling, stiff neck. HEART: Denies acute : chest pain, palpitations, LUNGS: Denies acute: SOB, wheezing, cough, hemoptysis ABDOMEN: Denies acute: abdominal pain, Nausea, Vomiting, diarrhea, melena , hematemesis, hematochezia SKIN: Denies acute: rash, redness, lesions, itchiness. EXTREMITIES: Denies acute: calf pain, numbness, tingling, weakness, denies pain in extremity. Denies acute: Low back pain. Neuro: Denies acute: focal neurological deficit, motor or sensory focal neurological deficit, tremors, seizure like activity, confusion, dizziness, change in mental status, loss of bowel or bladder function, cauda equina like symptoms. : Denies acute: hematuria, flank pain, increase in urinary frequency. PSYCH: Denies acute: hallucination, suicidal ideation, homicidal ideation. FEMALE: Denies acute: abnormal vaginal bleeding, foul odor, unusual discharge. PHYSICAL EXAM: General: no acute distress, awake and alert. Head: normocephalic, atraumatic. Neck: supple, trachea is midline, no swelling. Throat: Normal phonation. Eyes:, no erythema, no purulent discharge, no proptosis, no icterus. Heart: regular rate, regular rhythm, no significant murmur appreciated. Lungs: no apparent respiratory distress, Able to speak in full sentences. No wheezing, no rhonchi, no crackles. No stridors Clear to auscultation bilaterally. Abdomen: non tender to palpation, non distended, soft, no guarding, no rebound, + bowel sounds. Neuro: Awake, Alert, oriented to name, self, situation, follows commands GCS=15. Speech is normal. Skin: no petechia, no purpura, no cyanosis, non-pale, not jaundice. Lower extremities: --no - Pitting edema no deformity, no focal swelling, no calf TTP. Makes eye contact. moves all four extremities. Face: no apparent facial droop. Ambulating in the ED independently. No nuchal rigidity, Kernig's sign, Brudzinski's sign, no meningeal signs. ED COURSE: Chief Complaint: High Blood Pressure Time Seen by MD: 11:01 Primary Care Provider: None Reviewed Notes: Nurses Notes, Medications, Allergies Allergies: Coded Allergies: NO KNOWN ALLERGIES (Unverified , 10/14/15) Home Meds Active Scripts Hydroxyzine Pamoate (Vistaril) 25 Mg Cap, 1 CAP PO TID PRN for 10 Days, #30 CAP 1 Refill Prov:WERNER HEATON MD 03/15/24 Metoprolol Tartrate (Lopressor) 25 Mg Tb, 25 MG PO BID for 30 Days, #60 TAB 3 Refills Prov:KELECHI BROWN NP 03/13/24 Doxycycline (Monohydrate) (Doxycycline) 100 Mg Cap, 100 MG PO BID for 5 Days, #10 CAP Prov:KELECHI BROWN NP 03/13/24 Levofloxacin Hemihydrate (LEVAQUIN 500 MG) 500 Mg Tab, 500 MG PO DAILY for 7 Days, #7 TAB Prov:ROYA CHOWDHURY MD 03/08/24 Aspirin (Aspirin) 325 Mg Tab, 1 TAB PO DAILY, #30 TAB 5 Refills Prov:ROYA CHOWDHURY MD 03/08/24 Atorvastatin Calcium (Lipitor) 80 Mg Tab, 1 TAB PO DAILY, #30 TAB 5 Refills Prov:ROYA CHOWDHURY MD 03/08/24 Ciprofloxacin Hcl (Cipro) 500 Mg Tab, 1 TAB PO BID, #14 TAB Prov:JOSÉ MIGUEL SEPULVEDA MD 03/03/24 Reported Medications Lisinopril (Lisinopril) 10 Mg Tab, 1 TAB PO DAILY for 30 Days, #30 03/13/24 Information Source: Patient Mode of Arrival: Ambulatory Was a procedure done? Was a procedure done?: No CP Differential Dx Differential Diagnosis: N/A Differential Diagnosis: Other (DDX include renal disease, thyroid disease, electrolyte abnormality, increased salt intake, medications non-compliance, undiagnosed HTN, Hypertensive crisis, hypertensive urgency., drug toxicity.) X-Ray, Labs, Meds, VS Vital Signs Date Time Temp Pulse Resp B/P (MAP) Pulse Ox O2 Delivery O2 Flow Rate FiO2 09/16/24 16:24 97 17 95 Room Air 09/16/24 16:24 97.8 97 17 120/62 (81) 95 97.8 09/16/24 15:39 92 18 133/75 (94) 94 09/16/24 11:37 90 17 09/16/24 11:37 97.7 90 17 145/92 (109) 95 97.7 09/16/24 11:30 Room Air* 0 21 09/16/24 11:01 97.3 100 20 177/86 (116) 97 97.3 Lab Test 09/16/24 14:40 09/16/24 12:23 09/16/24 11:20 Range/Units Troponin I High Sensitivity 8 8 6 </=34 ng/L White Blood Count 7.1 4.4-10.8 10^3/uL Red Blood Count 5.41 H 4.0-5.20 10^6/uL Hemoglobin 16.6 H 12.2-16.2 g/dL Hematocrit 48.6 H 36.0-46.0 % Mean Corpuscular Volume 89.8 80.0-100.0 fL Mean Corpuscular Hemoglobin 30.6 28.0-32.0 pg Mean Corpuscular Hemoglobin Concent 34.1 32.0-36.0 g/dL Red Cell Distribution Width 13.3 11.8-14.3 % Platelet Count 272 140-450 10^3/uL Mean Platelet Volume 8.2 6.9-10.8 fL Neutrophils (%) (Auto) 56.8 37.0-80.0 % Lymphocytes (%) (Auto) 35.4 10.0-50.0 % Monocytes (%) (Auto) 6.5 0.0-12.0 % Eosinophils (%) (Auto) 0.9 0.0-7.0 % Basophils (%) (Auto) 0.4 0.0-2.0 % Neutrophils # (Auto) 4.0 1.6-8.6 10 ^3/uL Lymphocytes # (Auto) 2.5 0.4-5.4 10 ^3/uL Monocytes # (Auto) 0.5 0-1.3 10 ^3/uL Eosinophils # (Auto) 0.1 0-0.8 10 ^3/uL Basophils # (Auto) 0 0-0.2 10 ^3/uL Nucleated Red Blood Cells 0.5 % Sodium Level 131 L 136-145 mmol/L Potassium Level 3.6 3.5-5.1 mmol/L Chloride Level 97 L 98-107 mmol/L Carbon Dioxide Level 28 20-31 mmol/L Anion Gap 6 5-15 Blood Urea Nitrogen 7 L 9-23 mg/dL Creatinine 0.74 0.550-1.02 mg/dL Glomerular Filtration Rate Calc 89 >90 mL/min BUN/Creatinine Ratio 9.5 L 10.0-20.0 Serum Glucose 125 H 74-106 mg/dL Lactic Acid Level 1.3 0.4-2.0 mmol/L Calcium Level 9.6 8.7-10.4 mg/dL Total Bilirubin 0.9 0.2-1.0 mg/dL Aspartate Amino Transferase (AST) 21 13-40 U/L Alanine Aminotransferase (ALT) 18 7-40 U/L Alkaline Phosphatase 113 46-116 U/L B-Type Natriuretic Peptide 78.50 0-100 pg/mL Total Protein 8.1 5.7-8.2 g/dL Albumin 4.7 3.2-4.8 g/dL [facility] [id number] [facility] [address] Ph: [phone] DIAGNOSTIC IMAGING Diagnostic Imaging Report : [id number] Signed PATIENT: FARZANA ESCOBAR ACCT: [id number] UNIT: [id number] : 1955 LOC: ER ROOM / BED: / AGE / SEX: 69 / F ADM STATUS: REG ER SERVICE 1103 ORDERING PHYSICIAN: NAVJOT RAMOS DO PROCEDURE(s): HWOCT - HEAD WITHOUT CONTRAST REASON: HTN ORDER NUMBER(s): [id number], ACCESSION NUMBER(s): [id number] EXAM: CT HEAD WITHOUT CONTRAST HISTORY: HTN COMPARISON: HEAD WITHOUT CONTRAST on DOS: 05/16/22 TECHNIQUE: Axial images were obtained and reformatted in coronal and sagittal planes. All CT scans at this medical facility are performed using dose modulation techniques as appropriate to a performed exam including the following: Automated exposure control was utilized; adjustment of the MA and/or KV according to patient size; and use of iterative reconstruction technique. CT Dose: CTDI volume is 51.67 mGy. Dose-length product is 914.99 mGy*cm FINDINGS: Supratentorial Region: No evidence for large acute territorial ischemia. No intracranial hemorrhage is noted. Posterior Fossa: No acute abnormality. Brainstem: Unremarkable. Sellar/Suprasellar Region: Unremarkable. Ventricles, Cisterns, Sulci: Stable prominence of the bilateral ventricles. Stable frontal left parasagittal and left anterior middle cranial fossa arachnoid cysts. Orbits: Unremarkable. Paranasal Sinuses: Unremarkable. Mastoid Air Cells: Unremarkable. Vasculature: Unremarkable. Bones/Soft Tissues: No acute abnormality. Other: None. IMPRESSION: 1. No acute intracranial process. 2. Stable mild communicating hydrocephalus. ATED BY: MONICA LOUIS MD DICTATED DATE/TIME: 09/16/24 113 SIGNED BY: MONICA LOUIS MD SIGNED DATE/TIME: 09/16/244 CC: Time of 1ST Reevaluation: 12:01 Reevaluation 1ST: Unchanged Time of 2ND Reevaluation: 16:09 (The case was discussed with the neurology team (HPI, physical exam, labs and diagnostic tests that were available at the time of disposition, ED course, treatment plan) on the phone. They recommend outpatient follow up. No further interventions needed at this time. Patient is neurologically intact. No unsteady gait. No bladder dysfunction.) Reevaluation 2ND: Improved Patient Education/Counseling: Diagnosis, Treatment Family Education/Counseling: No Family Present Departure 1 Departure Time of Disposition: 15:57 Impression: Primary Impression: Hypertensive urgency Additional Impressions: Communicating hydrocephalus Dysuria Disposition: 01 HOME / SELF CARE / HOMELESS Condition: Stable Additional Instructions: Additional discharge instructions: You MUST follow-up with your primary care/family doctor in 1 to 2 days. If you are unable to see your primary care/family doctor, please return to our emergency room for re-assessment and re-evaluation in 1 to 2 days. Return to the emergency room here in our facility or to the nearest ER [facility] if your symptoms change or worsen. CONSULTATIONS: you MUST Follow-up for consultation as soon as possible with: --cardiology and neurosurgery in 1-2 days. Please call for appointment. You MUST call the consultants office yourself to make an appointment. You may need to arrange that through your insurance and/or your primary/family doctor. If you are unable to see the corporate consultant in 1 to 2 days, you must return to our emergency room (or any other ER of your choice) for re-assessment and re-evaluation. Adequate fluid hydration. Below is a copy of your radiological report for follow up: [place] [address] Ph: [phone] DIAGNOSTIC IMAGING Diagnostic Imaging Report : [id number] Signed PATIENT: FARZANA ESCOBAR ACCT: [id number] UNIT: [id number] : 1955 LOC: ER ROOM / BED: / AGE / SEX: 69 / F ADM STATUS: REG ER SERVICE 1103 ORDERING PHYSICIAN: NAVJOT RAMOS DO PROCEDURE(s): HWOCT - HEAD WITHOUT CONTRAST REASON: HTN ORDER NUMBER(s): [id number], ACCESSION NUMBER(s): [id number] EXAM: CT HEAD WITHOUT CONTRAST HISTORY: HTN COMPARISON: HEAD WITHOUT CONTRAST on DOS: 05/16/22 TECHNIQUE: Axial images were obtained and reformatted in coronal and sagittal planes. All CT scans at this medical facility are performed using dose modulation techniques as appropriate to a performed exam including the following: Automated exposure control was utilized; adjustment of the MA and/or KV according to patient size; and use of iterative reconstruction technique. CT Dose: CTDI volume is 51.67 mGy. Dose-length product is 914.99 mGy*cm FINDINGS: Supratentorial Region: No evidence for large acute territorial ischemia. No intracranial hemorrhage is noted. Posterior Fossa: No acute abnormality. Brainstem: Unremarkable. Sellar/Suprasellar Region: Unremarkable. Ventricles, Cisterns, Sulci: Stable prominence of the bilateral ventricles. Stable frontal left parasagittal and left anterior middle cranial fossa arachnoid cysts. Orbits: Unremarkable. Paranasal Sinuses: Unremarkable. Mastoid Air Cells: Unremarkable. Vasculature: Unremarkable. Bones/Soft Tissues: No acute abnormality. Other: None. IMPRESSION: 1. No acute intracranial process. 2. Stable mild communicating hydrocephalus. ATED BY: MONICA LOUIS MD DICTATED DATE/TIME: 09/16/24 1134 SIGNED BY: MONICA LOUIS MD SIGNED DATE/TIME: 09/16/24 1134 CC: e-Prescriptions Nitrofurantoin Monohydrate Mac (Macrobid) 100 Mg Cap 100 MG PO BID for 7 Days, #14 CAP Prov: NAVJOT RAMOS DO 09/16/24 Discharged With: Self Critical Care Note Critical Care Time?: Yes (35 min-critical care time only) Heart Score Heart Score: Heart Score Response (Comments) Value History Slightly Suspicious 0 EKG Normal 0 Age >65 2 Risk Factors 1 or 2 risk factors 1 Troponin Normal limit 0 Total 3 I personally scribed for NAVJOT RAMOS DO ([email or web address]) on 09/16/24 at 11:11. Electronically submitted by Clayton Nguyen ([email or web address]). I personally scribed for NAVJOT RAMOS DO ([email or web address]) on 09/16/24 at 13:29. Electronically submitted by Clayton Nguyen ([email or web address]). NAVJOT RAMOS DO Sep 16, 2024 11:11
[2024-09-16] MEDS ORDERED: NITROGLYCERIN 0.4 MG SL TAB SL ONE ×2 (11:15→11:45)
--- NOTE | 2024-09-16 11:30 | DVH ---
EXAM: XR Chest, 1 View CLINICAL INDICATION: HTN TECHNIQUE: Frontal view of the chest. COMPARISON: XY CHEST PORTABLE on DOS: 03/15/24, XY CHEST PORTABLE on DOS: 03/11/24, XY CHEST PORTABLE on DOS: 03/08/24, CHEST PORTABLE on DOS: 05/16/22, CXRP on DOS: 05/16/22 FINDINGS: LUNGS AND PLEURAL SPACES: Pulmonary congestion and edema. Pneumonia cannot be excluded. No pneumot horax. HEART: Unremarkable. No cardiomegaly. MEDIASTINUM: Unremarkable. Normal mediastinal contour. BONES/JOINTS: Unremarkable. No acute fracture. OTHER FINDINGS: . IMPRESSION: Pulmonary congestion and edema. Pneumonia cannot be excluded.
--- NOTE | 2024-09-16 11:36 | DVH ---
EXAM: CT HEAD WITHOUT CONTRAST HISTORY: HTN COMPARISON: HEAD WITHOUT CONTRAST on DOS: 05/16/22 TECHNIQUE: Axial images were obtained and reformatted in coronal and sagittal planes. All CT scans at this medical facility are performed using dose modulation techniques as appropriate t o a performed exam including the following: Automated exposure control was utilized; adjustment of th e MA and/or KV according to patient size; and use of iterative reconstruction technique. CT Dose: CTDI volume is 51.67 mGy. Dose-length product is 914.99 mGy*cm FINDINGS: Supratentorial Region: No evidence for large acute territorial ischemia. No intracranial hemorrhage is noted. Posterior Fossa: No acute abnormality. Brainstem: Unremarkable. Sellar/Suprasellar Region: Unremarkable. Ventricles, Cisterns, Sulci: Stable prominence of the bilateral ventricles. Stable frontal left par asagittal and left anterior middle cranial fossa arachnoid cysts. Orbits: Unremarkable. Paranasal Sinuses: Unremarkable. Mastoid Air Cells: Unremarkable. Vasculature: Unremarkable. Bones/Soft Tissues: No acute abnormality. Other: None. IMPRESSION: 1. No acute intracranial process. 2. Stable mild communicating hydrocephalus.
[2024-09-16 11:52] LABS: Basophils # (auto) 0 10 ^3/uL (0-0.2); Basophils % (auto) 0.4 % (0.0-2.0); Eosinophils # (auto) 0.1 10 ^3/uL (0-0.8); Eosinophils % (auto) 0.9 % (0.0-7.0); Hematocrit 48.6 % (36.0-46.0); Hemoglobin 16.6 g/dL (12.2-16.2); Lymphocytes # (auto) 2.5 10 ^3/uL (0.4-5.4); Lymphocytes % (auto) 35.4 % (10.0-50.0); Mean Corpuscular Hemoglobin 30.6 pg (28.0-32.0); Mean Corpuscular Hgb Conc. 34.1 g/dL (32.0-36.0); Mean Corpuscular Volume 89.8 fL (80.0-100.0); Monocytes # (auto) 0.5 10 ^3/uL (0-1.3); Monocytes % (auto) 6.5 % (0.0-12.0); Neutrophils % (auto) 56.8 % (37.0-80.0); Nucleated Red Blood Cells % 0.5 %; Platelet Count (auto) 272 10^3/uL (140-450); Red Blood Cells 5.41 10^6/uL (4.0-5.20); Red Cell Distribution Width 13.3 % (11.8-14.3); White Blood Cell 7.1 10^3/uL (4.4-10.8)
[2024-09-16] MEDS: NITROGLYCERIN 0.4 MG SL TAB SL ONE (12:04)
[2024-09-16 12:16] LABS: Alanine Aminotransferase 18 U/L (7-40); Albumin 4.7 g/dL (3.2-4.8); Alkaline Phosphatase 113 U/L (46-116); Anion Gap 6 (5-15); Aspartate Aminotransferase 21 U/L (13-40); BUN/Creatinine Ratio 9.5 (10.0-20.0); Bilirubin, Total 0.9 mg/dL (0.2-1.0); Blood Urea Nitrogen 7 mg/dL (9-23); Calcium 9.6 mg/dL (8.7-10.4); Carbon Dioxide 28 mmol/L (20-31); Chloride 97 mmol/L (98-107); Glucose 125 mg/dL (74-106); Potassium 3.6 mmol/L (3.5-5.1); Sodium 131 mmol/L (136-145); Total Protein 8.1 g/dL (5.7-8.2)
[2024-09-16 16:24] VITALS: BP 120/62; PULSE 97; RESP 17; TEMP 97.8; O2SAT 95
[2024-09-16] MEDS ORDERED: NITR-87 PO (18:37)
== END 2024-09-16 16:30 | disposition home or self-care (01) ==
LOC: ER 10:50
DX: I16.0 Hypertensive urgency (principal); G91.0 Communicating hydrocephalus; R30.0 Dysuria; I10 Essential (primary) hypertension; F41.9 Anxiety disorder, unspecified; E78.5 Hyperlipidemia, unspecified; J18.9 Pneumonia, unspecified organism; Z79.899 Other long term (current) drug therapy
CPT/HCPCS: 36415; 70450; 71045; 80053; 83605; 83880; 84484; 85025

== ENCOUNTER 2024-12-21 09:07 | Inpatient (IN) | payer MEDICARE, MEDICAID ==
[~2024-12-21] VITALS: Ht 152.4 cm; Wt 64.5 kg
[~2024-12-21 09:07] MED LIST changes: +NITR-87 PO
--- NOTE | 2024-12-21 10:11 | ED.PDOC ---
HPI Comments 69 year old female presents to the ED with a chief complaint of chest pain onset 4 days. Patient states she has been experiencing LT sided chest pain for the past 4 days, noticed pain worsen today, came to ED, currently rates pain 8/10. She took Tylenol for pain last night with no relief of symptoms. She is currently experiencing chest pain, shortness of breath, fatigue, palpitations. Upon ED arrival BP was 163/94. PMHx anxiety, HTN. Denies headache, dizziness, nausea, vomiting, diarrhea, abdominal pain,cold, co0ugh, congestion, sore throat. No other symptoms or modifying factors present at this time. Chief Complaint: High Blood Pressure Time Seen by MD: 10:00 Primary Care Provider: ? Reviewed Notes: Medications, Allergies Allergies: Coded Allergies: NO KNOWN ALLERGIES (Unverified , 10/14/15) Home Meds Active Scripts Nitrofurantoin Monohydrate Mac (Macrobid) 100 Mg Cap, 100 MG PO BID for 7 Days, #14 CAP Prov:NAVJOT RAMOS DO 09/16/24 Hydroxyzine Pamoate (Vistaril) 25 Mg Cap, 1 CAP PO TID PRN for 10 Days, #30 CAP 1 Refill Prov:WERNER HEATON MD 03/15/24 Metoprolol Tartrate (Lopressor) 25 Mg Tb, 25 MG PO BID for 30 Days, #60 TAB 3 Refills Prov:KELECHI BROWN NP 03/13/24 Doxycycline (Monohydrate) (Doxycycline) 100 Mg Cap, 100 MG PO BID for 5 Days, #10 CAP Prov:KELECHI BROWN NP 03/13/24 Levofloxacin Hemihydrate (LEVAQUIN 500 MG) 500 Mg Tab, 500 MG PO DAILY for 7 Days, #7 TAB Prov:ROYA CHOWDHURY MD 03/08/24 Aspirin (Aspirin) 325 Mg Tab, 1 TAB PO DAILY, #30 TAB 5 Refills Prov:ROYA CHOWDHURY MD 03/08/24 Atorvastatin Calcium (Lipitor) 80 Mg Tab, 1 TAB PO DAILY, #30 TAB 5 Refills Prov:ROYA CHOWDHURY MD 03/08/24 Ciprofloxacin Hcl (Cipro) 500 Mg Tab, 1 TAB PO BID, #14 TAB Prov:JOSÉ MIGUEL SEPULVEDA MD 8/30/24 Reported Medications Lisinopril (Lisinopril) 10 Mg Tab, 1 TAB PO DAILY for 30 Days, #30 03/13/24 Information Source: Patient Mode of Arrival: Ambulatory Severity: Moderate Timing: Days Duration: Since onset Prehospital treatment: Pain Meds (Tylenol) Location: Chest (L) Radiation: No Radiation Quality: Sharp Onset: At Rest Cardiac Risk Factors: None PE Risk Factors: None History of: None Associated Signs and Symptoms: SOB, Palpitations Past Medical History PAST MEDICAL HISTORY: Anxiety, HTN Surgical History: Denies all surgeries CHUTE TAPPER History: No Pertinent CHUTE TAPPER History Family History Family History: Reviewed,noncontributory to illness Social History Smoker: Non-Smoker Alcohol: Denies ETOH Use Drugs: Marijuana Lives In: Home Constitutional: reports: fatigue; denies: chills, diaphoresis, fever, malaise, sweats, weakness, others EENTM: denies: blurred vision, double vision, ear bleeding, ear discharge, ear drainage, ear pain, ear ringing, eye pain, eye redness, hearing loss, mouth pain, mouth swelling, nasal discharge, nose bleeding, nose congestion, nose pain, photophobia, tearing, throat pain, throat swelling, voice changes, others Respiratory: reports: shortness of breath; denies: cough, hemoptysis, orthopnea, SOB at rest, SOB with excertion, stridor, wheezing, others Cardiovascular: reports: chest pain, palpitations; denies: dizzy spells, diaphoresis, Dyspnea on exertion, edema, irregular heart beat, left arm pain, lightheadedness, PND, syncope, others Gastrointestinal: denies: abdomen distended, abdominal pain, blood streaked bow els, constipated, diarrhea, dysphagia, difficulty swallowing, hematemesis, melena, nausea, poor appetite, poor fluid intake, rectal bleeding, rectal pain, vomiting, others Genitourinary: denies: abnormal vagina bleeding, burning, dyspareunia, dysuria, flank pain, frequency, hematuria, incontinence, pain, , vagina discharge, urgency, others Neurological: denies: dizziness, fainting, headache, left sided numbness, left sided weakness, numbness, paresthesia, pre-existing deficit, right sided numbness, right sided weakness, seizure, speech problems, tingling, tremors, weakness, others Musculoskeletal: denies: back pain, gout, joint pain, joint swelling, muscle pain, muscle stiffness, neck pain, others Integumetry: denies: bruises, change in color, change in hair/nails, dryness, laceration, lesions, lumps, rash, wounds, others Allergic/Immunocompromised: denies: Difficulty Healing, Frequent Infections, Hives, Itching, others Hematologic/Lymphatic: denies: anemia, blood clots, easy bleeding, easy bruisi ng, swollen glands, others Endocrine: denies: excessive hunger, excessive sweating, excessive thirst, exce ssive urination, flushing, intolerance to cold, intolerance to heat, unexplained weight gain, unexplained weight loss, others Psychiatric: denies: anxiety, bipolar disorder, depression, hopeless, panic disorder, schizophrenia, sleepless, suicidal, others All Other Systems: Reviewed and Negative Physical Exam General Appearance: Normal HEENT: Normal ENT Inspection, Pharynx Normal, TMs Normal Neck: Full Range of Motion, Non-Tender, Normal, Normal Inspection Respiratory: Chest Non-Tender, Lungs Clear, No Accessory Muscle Use, No Respiratory Distress, Normal Breath Sounds Cardiovascular: No Edema, No JVD, No Murmur, No Gallop, Normal Peripheral Pulses, Regular Rate/Rhythm Breast Exam: Deferred Gastrointestinal: No Organomegaly, Non Tender, No Pulsatile Mass, Normal Bowel Sounds, Soft Genitalia: Deferred Pelvic: Deferred Rectal: Deferred Extremities: No calf tenderness, Normal capillary refill, Normal inspection, Normal range of motion, Non-tender, No pedal edema Musculoskeletal : Apperance: Normal Neurologic: Alert, harvest 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 Was a procedure done?: No CP Differential Dx Differential Diagnosis: MAT, CA, PAC's Differential Diagnosis: HTN Essential, HTN Accelerated Differential Diagnosis: Gastritis, Myocardial Infarction, Pericarditis, Pneumonia X-Ray, Labs, Meds, VS Vital Signs Date Time Temp Pulse Resp B/P (MAP) Pulse Ox O2 Delivery O2 Flow Rate FiO2 12/21/24 13:00 98.9 100 18 155/90 (111) 97 98.9 12/21/24 09:18 99.4 111 16 161/110 (127) 96 99.4 163/94 (117) Lab Test 12/21/24 12:45 12/21/24 11:34 12/21/24 10:20 12/21/24 09:22 Range/Units Troponin I High Sensitivity Pending < 3 L </=34 ng/L Lactic Acid Level 1.0 0.4-2.0 mmol/L White Blood Count 8.6 4.4-10.8 10^3/uL Red Blood Count 5.09 4.0-5.20 10^6/uL Hemoglobin 15.6 12.2-16.2 g/dL Hematocrit 44.4 36.0-46.0 % Mean Corpuscular Volume 87.3 80.0-100.0 fL Mean Corpuscular Hemoglobin 30.6 28.0-32.0 pg Mean Corpuscular Hemoglobin Concent 35.1 32.0-36.0 g/dL Red Cell Distribution Width 12.7 11.8-14.3 % Platelet Count 367 140-450 10^3/uL Mean Platelet Volume 7.9 6.9-10.8 fL Neutrophils (%) (Auto) 62.9 37.0-80.0 % Lymphocytes (%) (Auto) 27.5 10.0-50.0 % Monocytes (%) (Auto) 7.7 0.0-12.0 % Eosinophils (%) (Auto) 1.5 0.0-7.0 % Basophils (%) (Auto) 0.4 0.0-2.0 % Neutrophils # (Auto) 5.4 1.6-8.6 10 ^3/uL Lymphocytes # (Auto) 2.4 0.4-5.4 10 ^3/uL Monocytes # (Auto) 0.7 0-1.3 10 ^3/uL Eosinophils # (Auto) 0.1 0-0.8 10 ^3/uL Basophils # (Auto) 0 0-0.2 10 ^3/uL Nucleated Red Blood Cells 0.1 % Sodium Level 129 L 136-145 mmol/L Potassium Level 4.1 3.5-5.1 mmol/L Chloride Level 95 L 98-107 mmol/L Carbon Dioxide Level 26 20-31 mmol/L Anion Gap 8 5-15 Blood Urea Nitrogen 7 L 9-23 mg/dL Creatinine 0.72 0.550-1.02 mg/dL Glomerular Filtration Rate Calc 92 >90 mL/min BUN/Creatinine Ratio 9.7 L 10.0-20.0 Serum Glucose 119 H 74-106 mg/dL Calcium Level 9.9 8.7-10.4 mg/dL B-Type Natriuretic Peptide 55.98 0-100 pg/mL Urine Color Light-yellow Yellow Urine Clarity Clear Clear Urine pH 6.5 5.0-9.0 Urine Specific [place] 1.011 1.001-1.035 Urine Protein Negative Negative Urine Ketones Negative Negative Urine Blood Negative Negative /uL Urine Nitrite Negative Negative Urine Bilirubin Negative Negative Urine Urobilinogen Normal Negative mg/dL Urine Leukocyte Esterase Negative Negative /uL Urine RBC 1 0 - 4 /hpf Urine Microscopic WBC < 1 0-5 /HPF Urine Squamous Epithelial Cells None seen <5 /hpf Urine Bacteria None seen None Seen /hpf Urine Glucose Normal Normal mg/dL Time of 1ST Reevaluation: 10:30 Reevaluation 1ST: Unchanged Patient Education/Counseling: Diagnosis, Treatment, Prognosis Family Education/Counseling: No Family Present SEPSIS Sepsis Screen Date sepsis recognized/suspect: Dec 21, 2024 Time Sepsis recognized/suspect: 917 Recent Procedure: No On Antibiotic Therapy: No Respiratory Rate >20: No Heart Rate >90: Yes Temp<36 C (96.8 F) or >38.3 C: No SBP <90 or MAP <65 mmHG: No New Acute Mental Status Change: No Is the patient on CPAP, BIPAP,: No Physician Orders Troponin-I Hs (12/21/24 10:43) Troponin-I Hs (12/21/24 12:43) Electrocardigram (12/21/24 10:04) Chest Portable (12/21/24 10:04) Electrocardigram (12/21/24 11:04) Electrocardigram (12/21/24 13:04) Blood Culture (12/21/24 10:55) NS (12/21/24 13:15) Cefepime 2gm Extended Infusion (12/21/24 13:15) Vancomycin (12/21/24 13:15) Azithromycin Tablet (Zithromax Tablet) (12/21/24 13:15) Vital Signs Date Time Temp Pulse Resp B/P (MAP) Pulse Ox O2 Delivery O2 Flow Rate FiO2 12/21/24 13:00 98.9 100 18 155/90 (111) 97 98.9 12/21/24 09:18 99.4 111 16 161/110 (127) 96 99.4 163/94 (117) Laboratory Tests Test 12/21/24 10:20 12/21/24 11:34 White Blood Count 8.6 10^3/uL (4.4-10.8) Lactic Acid Level 1.0 mmol/L (0.4-2.0) Departure 1 Departure Time of Disposition: 13:10 (Patient presented with chest pain that was concerning for possible STEMI, ACS, PE, Pneumonia, Muscle Strain, COPD, Dissection. Data: 1. I ordered and reviewed the result of at least 3 labs including a CBC, BMP, and Troponin. 2. I independently interpreted the following tests: EKG which shows sinus arrhythmia and Chest X-ray which shows possible pneumonia.Risk:This patient has a high risk of morbidity due to further diagnostic testing or treatment and may suffer from an acute cardiac or respiratory disorder. Workup reveals _ concern for pneumonia and patient should be admitted for further workup and possible expert consultation. We will not give patient full fluid bolus with the patient appears mildly volume overl oaded.) Impression: Primary Impression: Acute chest pain Additional Impression: Pneumonia of both lower lobes Qualified Codes: J18.9 - Pneumonia, unspecified organism Disposition: ADMITTED INPATIENT Admit to: Med Surg Condition: Serious Critical Care Note Critical Care Time?: Yes Critical care comment: Acute chest pain Authorized and Performed by: Cy Triplett MD Total critical care time: Approximately 39 minutes Due to a high probability of clinically significant, life threatening deterioration, the patient required my highest level of preparedness to intervene emergently and I personally spent this critical care time directly and personally managing the patient. This critical care time included obtaining a history; examining the patient; pulse oximetry; ordering and review of studies; arranging urgent treatment with development of a management plan; evaluation of patient's response to treatment; frequent reassessment; and, discussions with other providers. This critical care time was performed to assess and manage the high probability of imminent, life-threatening deterioration that could result in multi-organ failure. It was exclusive of separately billable procedures and treating other patients and teaching time. Please see my other sections and the rest of the note for further information on patient assessment and treatment. Stability Stability form required: No Heart Score Heart Score: Heart Score Response (Comments) Value History Moderate Suspicious 1 EKG Repolarization Disturb 1 Age >65 2 Risk Factors >3 or Hx ASHD 2 Troponin Normal limit 0 Total 6 I personally scribed for CY TRIPLETT MD ([email or web address]) on 12/21/24 at 10:11. Electronically submitted by Melissa Garrison ([email or web address]). CY TRIPLETT MD Dec 21, 2024 10:11
[2024-12-21 10:15] LABS: Urine Bacteria None Seen /hpf (None Seen)
[2024-12-21 10:24] LABS: Urine Blood Negative /uL (Negative); Urine Clarity Clear (Clear); Urine Color Light-Yellow (Yellow); Urine Protein, UAD Negative (Negative); Urine Specific Gravity 1.011 (1.001-1.035); Urine Squamous Epithelial Cell None Seen /hpf (<5); Urine Urobilinogen Normal (Negative); Urine WBC < 1 /HPF (0-5); Urine pH 6.5 (5.0-9.0)
--- NOTE | 2024-12-21 10:41 | DVH ---
XY CHEST PORTABLE, HISTORY: chest pain COMPARISON: XY CHEST PORTABLE on DOS: 09/16/24, XY CHEST PORTABLE on DOS: 03/15/24, XY CHEST PORTABLE o n DOS: 03/11/24 XY CHEST PORTABLE on DOS: 09/16/24, XY CHEST PORTABLE on DOS: 03/15/24, XY CHEST PORTABLE on DOS: 4 TECHNICAL DATA: 1 view of the chest was obtained. FINDINGS: Lines and tubes: None Cardiomediastinal silhouette: normal Pulmonary vasculature: prominent Lung expansion: normal Lung airspace: Bilateral patchy airspace opacity could be edema or pneumonia. Lung interstitium: normal Pleura: normal Pneumothorax: no Bones: Unremarkable Other: no IMPRESSION: Bilateral patchy airspace opacity could be edema or pneumonia.
[2024-12-21 10:52] LABS: Basophils # (auto) 0 10 ^3/uL (0-0.2); Basophils % (auto) 0.4 % (0.0-2.0); Eosinophils # (auto) 0.1 10 ^3/uL (0-0.8); Eosinophils % (auto) 1.5 % (0.0-7.0); Hematocrit 44.4 % (36.0-46.0); Hemoglobin 15.6 g/dL (12.2-16.2); Lymphocytes # (auto) 2.4 10 ^3/uL (0.4-5.4); Lymphocytes % (auto) 27.5 % (10.0-50.0); Mean Corpuscular Hemoglobin 30.6 pg (28.0-32.0); Mean Corpuscular Hgb Conc. 35.1 g/dL (32.0-36.0); Mean Corpuscular Volume 87.3 fL (80.0-100.0); Monocytes # (auto) 0.7 10 ^3/uL (0-1.3); Monocytes % (auto) 7.7 % (0.0-12.0); Neutrophils # (auto) 5.4 10 ^3/uL (1.6-8.6); Neutrophils % (auto) 62.9 % (37.0-80.0); Nucleated Red Blood Cells % 0.1 %; Platelet Count (auto) 367 10^3/uL (140-450); Red Blood Cells 5.09 10^6/uL (4.0-5.20); Red Cell Distribution Width 12.7 % (11.8-14.3); White Blood Cell 8.6 10^3/uL (4.4-10.8)
[2024-12-21 11:04] LABS: Potassium 4.1 mmol/L (3.5-5.1)
[2024-12-21 11:05] LABS: Anion Gap 8 (5-15); Calcium 9.9 mg/dL (8.7-10.4); Carbon Dioxide 26 mmol/L (20-31)
[2024-12-21 11:06] LABS: Chloride 95 mmol/L (98-107); Sodium 129 mmol/L (136-145)
[2024-12-21 11:10] LABS: BUN/Creatinine Ratio 9.7 (10.0-20.0); Blood Urea Nitrogen 7 mg/dL (9-23); Glucose 119 mg/dL (74-106)
[2024-12-21] MEDS: LORazepam 0.5 MG TAB PO ONE (13:17)
[2024-12-21] MEDS: ACETAMINOPHEN 500 MG TAB or CAP PO ONE (13:22)
--- NOTE | 2024-12-21 13:56 | DVHHP2 ---
History of Present Illness Reason for Visit: Chest pain History of Present Illness 69-year-old female past medical history anxiety hypertension NSTEMI type 2 hyperlipidemia no surgical history chief complaint patient states she has been having more stress and anxiety because he is not working she also complain of midsternal chest pain is pressure-like in nature she has no cough no fever no swelling no calf pain patient is sad and crying on exam she does agree to see psych tele patient is taking Xanax twice a day when she states not helping with her anxiety she does not see a heart doctor by history. When evaluating patient's labs and imaging from ED lactate was 0 troponin was negative CBC was unremarkable sodium was 129 chloride was 95 glucose was 119 patient was provided Zithromax and vanco BNP was 53.98 cefepime was also given chest x-ray showed pneumonia normal saline was provided Ativan Tylenol was given reviewed echo from March 2024 EF was 50%. With these findings we will admit patient provide cardiac workup and IV antibiotics Past Medical History See HPI above Past Surgical History See HPI above Family History Reviewed, non-contributory to the management of this case. Past Social History The patient lives at home, denies smoking, alcohol or illicit drugs abuse. Review of Systems Constitutional: No: Fever, Chills, Sweats, Weakness, Malaise, Other Eyes: No: Pain, Vision change, Conjunctivae inflammation, Eyelid inflammation, Other, Redness ENT: No: Ear pain, Ear discharge, Nose pain, Nose discharge, Nose congestion, Mouth pain, Mouth swelling, Throat pain, Throat swelling, Other Respiratory: No: Cough, Dry, Shortness of breath, SOB with excertion, Wheezing, Hemoptysis, Pleuritic Pain, Sputum, Wheezing, Other Cardiovascular: Chest Pain; No: Palpitations, Orthopnea, Paroxysmal Noc. Dyspnea, Edema, Lt Headedness, Other Gastrointestinal: No: Nausea, Vomiting, Abdominal Pain, Diarrhea, Constipation, Melena, Hematochezia, Other Genitourinary: No Dysuria, No Frequency, No Incontinence, No Hematuria, No Retention, No Other Musculoskeletal: No: other, neck pain, shoulder pain, arm pain, back pain, hand pain, leg pain, foot pain Skin: No: Rash, Lesions, Jaundice, Bruising, Other Neurological: Weakness; No: Numbness, Incoordination, Change in speech, Confusion, Seizures, Other Allergies: Coded Allergies: NO KNOWN ALLERGIES (Unverified , 10/14/15) Exam Vital Signs Vital Signs Date Time Temp Pulse Resp B/P (MAP) Pulse Ox O2 Delivery O2 Flow Rate FiO2 12/21/24 13:00 98.9 100 18 155/90 (111) 97 98.9 General Appearance: Alert, Oriented X3, Cooperative, No acute distress HEENT: Atraumatic, PERRLA, EOMI, Mucous membr. moist/pink Respiratory: Normal air movement, Other (Coarse rales heard) Cardiovascular: Regular rate, Normal S1, Normal S2, No murmurs Abdominal: Normal bowel sounds, Soft, No tenderness, No hepatospenomegaly, No masses Extremities: No clubbing, No cyanosis, No edema, Normal pulses, No tenderness/swelling Skin: No rashes, No breakdown, No significant lesion Neuro: Normal speech, Strength at 5/5 X4 ext, Normal tone, Sensation intact, Cranial nerves 3-12 NL Psych/Mental Status: Mental status NL, Mood NL Labs/Xrays Chest x-ray shows pneumonia Echo reviewed from March of 2024 EF 50% I reviewed labs, imaging CT scan abdomen pelvis, EKG and all diagnostic studies on this patient from ED records and the medical chart Labs Test 12/21/24 12:45 12/21/24 11:34 12/21/24 10:20 12/21/24 09:22 Range/Units Troponin I High Sensitivity 4 </=34 ng/L Lactic Acid Level 1.0 0.4-2.0 mmol/L White Blood Count 8.6 4.4-10.8 10^3/uL Red Blood Count 5.09 4.0-5.20 10^6/uL Hemoglobin 15.6 12.2-16.2 g/dL Hematocrit 44.4 36.0-46.0 % Mean Corpuscular Volume 87.3 80.0-100.0 fL Mean Corpuscular Hemoglobin 30.6 28.0-32.0 pg Mean Corpuscular Hemoglobin Concent 35.1 32.0-36.0 g/dL Red Cell Distribution Width 12.7 11.8-14.3 % Platelet Count 367 140-450 10^3/uL Mean Platelet Volume 7.9 6.9-10.8 fL Neutrophils (%) (Auto) 62.9 37.0-80.0 % Lymphocytes (%) (Auto) 27.5 10.0-50.0 % Monocytes (%) (Auto) 7.7 0.0-12.0 % Eosinophils (%) (Auto) 1.5 0.0-7.0 % Basophils (%) (Auto) 0.4 0.0-2.0 % Neutrophils # (Auto) 5.4 1.6-8.6 10 ^3/uL Lymphocytes # (Auto) 2.4 0.4-5.4 10 ^3/uL Monocytes # (Auto) 0.7 0-1.3 10 ^3/uL Eosinophils # (Auto) 0.1 0-0.8 10 ^3/uL Basophils # (Auto) 0 0-0.2 10 ^3/uL Nucleated Red Blood Cells 0.1 % Sodium Level 129 L 136-145 mmol/L Potassium Level 4.1 3.5-5.1 mmol/L Chloride Level 95 L 98-107 mmol/L Carbon Dioxide Level 26 20-31 mmol/L Anion Gap 8 5-15 Blood Urea Nitrogen 7 L 9-23 mg/dL Creatinine 0.72 0.550-1.02 mg/dL Glomerular Filtration Rate Calc 92 >90 mL/min BUN/Creatinine Ratio 9.7 L 10.0-20.0 Serum Glucose 119 H 74-106 mg/dL Calcium Level 9.9 8.7-10.4 mg/dL B-Type Natriuretic Peptide 55.98 0-100 pg/mL Urine Color Light-yellow Yellow Urine Clarity Clear Clear Urine pH 6.5 5.0-9.0 Urine Specific [place] 1.011 1.001-1.035 Urine Protein Negative Negative Urine Ketones Negative Negative Urine Blood Negative Negative /uL Urine Nitrite Negative Negative Urine Bilirubin Negative Negative Urine Urobilinogen Normal Negative mg/dL Urine Leukocyte Esterase Negative Negative /uL Urine RBC 1 0 - 4 /hpf Urine Microscopic WBC < 1 0-5 /HPF Urine Squamous Epithelial Cells None seen <5 /hpf Urine Bacteria None seen None Seen /hpf Urine Glucose Normal Normal mg/dL Assessment/Plan Assessment/Plan acute bacterial community acquired pna found on cxr ordered ceftriaxone and azithromax o2 prn to keep sats >92% Acute chest pain likely d/t pna trop x1 negative ekg no stemi trend trop ordered asa and atorvastin ordered nitro prn chest pain consider cards consult if uptrending of trop and positive echo no hypoxia no need for ddimer ordered echo fu results acute hyponatremia ordered serum osm and urine osm, and urine sodium chronic problems anxiety htn hld fen/ppx diet hl lovenox no gi ppx since no hx of gerds or gi bleed plan admit to tele Plan discussed with: Patient Date of Service: Dec 21, 2024 Billing Provider: REID OSUNA DNP Common Visit Codes: [id number] INP/OBS CARE (HIGH) REID OSUNA DNP Dec 21, 2024 13:56
[2024-12-21] MEDS ORDERED: MORPHINE SULFATE 4 MG/ML SYR/VIAL IV PRN (14:00)
[2024-12-21] MEDS ORDERED: NITROGLYCERIN 0.4 MG SL TAB SL PRN ×2 (14:00→16:30)
[2024-12-21] MEDS ORDERED: LORazepam 0.5 MG TAB PO PRN (14:00)
[2024-12-21] MEDS ORDERED: ONDANSETRON HCL 4 MG/2 ML VIAL IV PRN (14:00)
[2024-12-21] MEDS: AZITHROMYCIN 250 MG TAB PO ONE (14:01)
[2024-12-21] MEDS: SODIUM CHLORIDE 0.9% 1,000 ML IV ONE (14:01)
[2024-12-21 14:07] VITALS: PULSE 106; RESP 20; O2SAT 95
[2024-12-21 16:00] VITALS: PULSE 110; PULSE 92; RESP 20; O2SAT 95
[2024-12-21] MEDS: VANCOMYCIN 1GM/200ML PM 200 ML IV ONE (16:10)
[2024-12-21] MEDS ORDERED: AZITHROMYCIN 500MG/ 250ML 250 ML IV ONE (16:30)
[2024-12-21] MEDS: CEFEPIME 2GM/50ML NS 50 ML IV ONE (17:53)
[2024-12-21 21:00] VITALS: BP 141/77; PULSE 96; RESP 18; TEMP 97.6; O2SAT 93
[2024-12-21] MEDS: METOPROLOL TARTRATE 25 MG TAB PO SCH (21:34)
[2024-12-21] MEDS: ATORVASTATIN 20 MG TAB PO SCH (21:34)
[2024-12-22] VITALS (9 sets, daily range): BP systolic 130–160; BP diastolic 74–88; PULSE 67–101; RESP 16–20; TEMP 98–98.5; O2SAT 93–96
[2024-12-22 05:18] LABS: Basophils # (auto) 0 10 ^3/uL (0-0.2); Basophils % (auto) 0.3 % (0.0-2.0); Eosinophils # (auto) 0.4 10 ^3/uL (0-0.8); Eosinophils % (auto) 5.5 % (0.0-7.0); Hematocrit 42.7 % (36.0-46.0); Hemoglobin 14.8 g/dL (12.2-16.2); Lymphocytes # (auto) 2.6 10 ^3/uL (0.4-5.4); Mean Corpuscular Hemoglobin 30.4 pg (28.0-32.0); Mean Corpuscular Hgb Conc. 34.6 g/dL (32.0-36.0); Mean Corpuscular Volume 87.8 fL (80.0-100.0); Monocytes # (auto) 0.7 10 ^3/uL (0-1.3); Monocytes % (auto) 9.6 % (0.0-12.0); Neutrophils # (auto) 3.9 10 ^3/uL (1.6-8.6); Neutrophils % (auto) 50.6 % (37.0-80.0); Nucleated Red Blood Cells % 0.1 %; Platelet Count (auto) 327 10^3/uL (140-450); Red Blood Cells 4.87 10^6/uL (4.0-5.20); White Blood Cell 7.7 10^3/uL (4.4-10.8)
[2024-12-22 05:28] LABS: Chloride 103 mmol/L (98-107)
[2024-12-22 05:29] LABS: Anion Gap 8 (5-15); Carbon Dioxide 23 mmol/L (20-31)
[2024-12-22 05:30] LABS: Calcium 8.6 mg/dL (8.7-10.4); Sodium 134 mmol/L (136-145)
[2024-12-22 05:34] LABS: BUN/Creatinine Ratio 11.7 (10.0-20.0); Glucose 102 mg/dL (74-106)
[2024-12-22 05:35] LABS: Blood Urea Nitrogen 7 mg/dL (9-23)
[2024-12-22] MEDS ORDERED: ALPR0.255 GT (07:09)
[2024-12-22] MEDS ORDERED: BENZ100C97 PO (07:09)
[2024-12-22] MEDS: cefTRIAXone 1GM/50ML D5W 50 ML IV SCH (10:12)
[2024-12-22] MEDS: LORazepam 0.5 MG TAB PO PRN (10:13)
[2024-12-22] MEDS: LISINOPRIL 5 MG TAB PO SCH (10:14)
[2024-12-22] MEDS: ASPirin 81 mg TAB PO SCH (10:14)
[2024-12-22] MEDS: AZITHROMYCIN 500MG/ 250ML 250 ML IV SCH (10:57)
--- NOTE | 2024-12-22 16:58 | DVHPN2 ---
Subjective I am assuming the care of the patient from today onwards who was under the care of the hospitalist team detailed sign out obtained. Changes from previous H/P or p: No Changes Eyes: No Pain, No Vision change, No Conjunctivae inflammation, No Eyelid inflammation, No Other, No Redness ENT: No Ear pain, No Ear discharge, No Nose pain, No Nose discharge, No Nose congestion, No Mouth pain, No Mouth swelling, No Throat pain, No Throat swelling, No Other Cardiovascular: Chest Pain; No Palpitations, No Orthopnea, No Paroxysmal Noc. Dyspnea, No Edema, No Lt Headedness, No Other Respiratory: No Cough, No Dry, No Shortness of breath, No SOB with excertion, No Wheezing, No Hemoptysis, No Pleuritic Pain, No Sputum, No Other Gastrointestinal: No Nausea, No Vomiting, No Abdominal Pain, No Diarrhea, No Constipation, No Melena, No Hematochezia, No Other Genitourinary: No Dysuria, No Frequency, No Incontinence, No Hematuria, No Retention, No Other Musculoskeletal: No other, No neck pain, No shoulder pain, No arm pain, No back pain, No hand pain, No leg pain, No foot pain Skin: No Rash, No Lesions, No Jaundice, No Bruising, No Other Objective Vitals Vital Signs Date Time Temp Pulse Resp B/P (MAP) Pulse Ox O2 Delivery O2 Flow Rate FiO2 12/22/24 16:21 98.0 86 16 138/74 (95) 96 98.0 12/22/24 00:41 Room Air* 0 21 Intake/Output Intake and Output 12/22/24 07:00 Intake Total 212.5 ml Balance 212.5 ml Intake IV Total 212.5 ml Exam HEENT pupils are reactive Neck is supple CV is S1-S2 regular rate and rhythm Respiratory are clear GI positive bowel sound Extremity no edema [employer]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 Medications Current Medications Medications Dose Ordered Sig/Aaron Route Start Time Stop Time Status Last Admin Dose Admin Aspirin 81 mg DAILY PO 12/22/24 10:00 12/22/24 10:14 81 MG Morphine Sulfate 2 mg Q30MP PRN IV 12/21/24 14:00 Ondansetron HCl 4 mg Q4HP PRN IV 12/21/24 14:00 Metoprolol Tartrate 25 mg BID PO 12/21/24 22:00 12/22/24 10:14 25 MG Atorvastatin Calcium 80 mg HS PO 12/21/24 22:00 12/21/24 21:34 80 MG Lisinopril 10 mg DAILY PO 12/22/24 10:00 12/22/24 10:14 10 MG Ceftriaxone Sodium 50 ml @ 100 mls/hr DAILY@09 IV 12/22/24 09:00 12/22/24 10:12 100 MLS/HR Azithromycin 250 ml @ 125 mls/hr DAILY IV 12/22/24 10:00 12/22/24 10:57 125 MLS/HR Lorazepam 0.5 mg Q6HP PRN PO 12/21/24 16:30 12/22/24 10:13 0.5 MG Nitroglycerin 0.4 mg Q5MINP PRN SL 12/21/24 16:30 Guaifenesin 200 mg Q4HP PRN PO 12/22/24 16:45 UNV Laboratory Results Laboratory Tests 12/22/24 04:49 Chemistry Test 12/22/24 04:49 Calcium Level 8.6 mg/dL (8.7-10.4) L Urinalysis Test 12/21/24 09:22 12/21/24 17:00 Urine Color Light-yellow (Yellow) Urine Clarity Clear (Clear) Urine pH 6.5 (5.0-9.0) Urine Specific [place] 1.011 (1.001-1.035) Urine Protein Negative (Negative) Urine Ketones Negative (Negative) Urine Blood Negative /uL (Negative) Urine Nitrite Negative (Negative) Urine Bilirubin Negative (Negative) Urine Urobilinogen Normal mg/dL (Negative) Urine Leukocyte Esterase Negative /uL (Negative) Urine RBC 1 /hpf (0 - 4) Urine Microscopic WBC < 1 /HPF (0-5) Urine Squamous Epithelial Cells None seen /hpf (<5) Urine Bacteria None seen /hpf (None Seen) Urine Sodium 60 mmol/L (40-220) Urine Glucose Normal mg/dL (Normal) Urine Osmolality 400 mOsm/kg Microbiology Microbiology Date/Time Source Procedure Growth Status 12/21/24 11:23 Blood Blood Culture - Preliminary NO GROWTH AFTER 24 HOURS OF INCUBATION. Resulted Assessment/Plan Assessment/Plan 69-year-old female with a known history of anxiety disorder, hypertension, dyslipidemia presented to the hospital with the chest pain headache and anxiety spell found to have 1. Chest pain rule out [place] 2. Hypertension 3. Dyslipidemia 4. Anxiety disorder -troponins are negative, tele psych consultation, Plan discussed with: Patient My Orders Orders - SANAM ATKINS MD Procedure Category Date Status Time Guaifenesin Plain PHA 12/22/24 Logged Liquid (Robitussin Stella 16:45 Date of Service: Dec 22, 2024 Billing Provider: SANAM ATKINS MD Common Visit Codes: [id number] INP/OBS CARE(MOD) SANAM ATKINS MD Dec 22, 2024 16:58
[2024-12-22] MEDS: guaiFENesin 200 MG/10 ML UD PO PRN (18:40)
--- NOTE | 2024-12-22 19:57 | DVHSR ---
APPROVED REPORT EXAM: Two-dimensional and M-mode echocardiogram with Doppler and color Doppler. Blood Pressure: 157/84 mmHg INDICATION Chest Pain RISK FACTORS Height: 5', Weight: 139 DIMENSIONS LVDd3.5 (3.8-5.7cm)LA (2D)3.8 (1.9-4.0cm)Aortic Root2.7 (2.0-3.7cm) LVDs2.6 (2.5-4.0cm)LA (MM) (1.9-4.0cm)Aortic Cusp Exc1.5 (1.5-2.0cm) EF (%) 50.0 (55-70%)Rt. Atrium3.6 (1.9-4.0cm)Asc. Aorta cm IVSd1.2 (0.7-1.1cm)RV (D) (1.8-2.4cm) PWd1.2 (0.7-1.1cm) Mitral Valve MitralMitral Stenosis E wave1.10m/sMV Mean GR.mmHg A wave1.40m/sMV Peak GR.mmHg E/A ratio0.82D MVAcm2 Aortic Valve Aortic ValveAortic Stenosis V11.00m/Inocente Mean GR.4mmHg V21.30m/Inocente Peak GR.7mmHg LVOT Diameter2.1 (1.8-2.4cm)Doppler AVA2.66cm2 AI P 1/2 Tcdl136.85ms Pulmonic Valve V20.50m/s Other Information Quality : Technically LimitedRhythm : Conclusion LV not well visualized, LVEF likely normal 50-55%. Mild LVH. Moderate diastolic dysfunction mild to moderate mr
[2024-12-23 05:00] VITALS: BP 129/81; PULSE 85; RESP 20; TEMP 97.8; O2SAT 97
[2024-12-23 08:00] VITALS: PULSE 70; PULSE 81; O2SAT 96
[2024-12-23 09:00] VITALS: BP 143/79; PULSE 87; RESP 16; TEMP 98.1; O2SAT 94
--- NOTE | 2024-12-23 11:38 | DVHINCON2 ---
Date of Service if different f: Dec 23, 2024 Consultation (SIEPER) Labs Laboratory Tests Test 12/21/24 09:22 12/21/24 10:20 12/21/24 11:34 12/21/24 12:45 Urine Color Light-yellow (Yellow) Urine Clarity Clear (Clear) Urine pH 6.5 (5.0-9.0) Urine Specific [place] 1.011 (1.001-1.035) Urine Protein Negative (Negative) Urine Ketones Negative (Negative) Urine Blood Negative /uL (Negative) Urine Nitrite Negative (Negative) Urine Bilirubin Negative (Negative) Urine Urobilinogen Normal mg/dL (Negative) Urine Leukocyte Esterase Negative /uL (Negative) Urine RBC 1 /hpf (0 - 4) Urine Microscopic WBC < 1 /HPF (0-5) Urine Squamous Epithelial Cells None seen /hpf (<5) Urine Bacteria None seen /hpf (None Seen) Urine Sodium 60 mmol/L (40-220) Urine Glucose Normal mg/dL (Normal) Magnesium Level 1.9 mg/dL (1.6-2.6) B-Type Natriuretic Peptide 55.98 pg/mL (0-100) Lactic Acid Level 1.0 mmol/L (0.4-2.0) Troponin I High Sensitivity 4 ng/L (</=34) Test 12/21/24 17:00 12/21/24 18:55 12/22/24 04:49 Urine Osmolality 400 mOsm/kg Serum Osmolality 284 mOsm/kg (278-298) White Blood Count 7.7 10^3/uL (4.4-10.8) Red Blood Count 4.87 10^6/uL (4.0-5.20) Hemoglobin 14.8 g/dL (12.2-16.2) Hematocrit 42.7 % (36.0-46.0) Mean Corpuscular Volume 87.8 fL (80.0-100.0) Mean Corpuscular Hemoglobin 30.4 pg (28.0-32.0) Mean Corpuscular Hemoglobin Concent 34.6 g/dL (32.0-36.0) Red Cell Distribution Width 13.0 % (11.8-14.3) Platelet Count 327 10^3/uL (140-450) Mean Platelet Volume 7.5 fL (6.9-10.8) Neutrophils (%) (Auto) 50.6 % (37.0-80.0) Lymphocytes (%) (Auto) 34.0 % (10.0-50.0) Monocytes (%) (Auto) 9.6 % (0.0-12.0) Eosinophils (%) (Auto) 5.5 % (0.0-7.0) Basophils (%) (Auto) 0.3 % (0.0-2.0) Neutrophils # (Auto) 3.9 10 ^3/uL (1.6-8.6) Lymphocytes # (Auto) 2.6 10 ^3/uL (0.4-5.4) Monocytes # (Auto) 0.7 10 ^3/uL (0-1.3) Eosinophils # (Auto) 0.4 10 ^3/uL (0-0.8) Basophils # (Auto) 0 10 ^3/uL (0-0.2) Nucleated Red Blood Cells 0.1 % Sodium Level 134 mmol/L (136-145) Potassium Level 4.0 mmol/L (3.5-5.1) Chloride Level 103 mmol/L (98-107) Carbon Dioxide Level 23 mmol/L (20-31) Anion Gap 8 (5-15) Blood Urea Nitrogen 7 mg/dL (9-23) Creatinine 0.60 mg/dL (0.550-1.02) Glomerular Filtration Rate Calc 98 mL/min (>90) BUN/Creatinine Ratio 11.7 (10.0-20.0) Serum Glucose 102 mg/dL (74-106) Calcium Level 8.6 mg/dL (8.7-10.4) Microbiology Date/Time Source Procedure Growth Status 12/21/24 11:23 Blood Blood Culture - Preliminary NO GROWTH AFTER 24 HOURS OF INCUBATION. Resulted Appetite: Fair Appearance: Stated age, Groomed, Clean Psychomotor activity: WNL Behavioral: Cooperative Eye contact: Appropriate Mood: Depressed, Anxious Thought processes: Linear/Goal-directed Thought content: WNL Suicidal ideations: Absent Homicidal ideations: Absent Orientation: Person, Place, Time, Situation Memory intact: Recent Intellect: Average Abstractability: WNL Concentration: Adequate Attention: Adequate Judgement: WNL Insight: Fair Vitals Vital Signs Date Time Temp Pulse Resp B/P (MAP) Pulse Ox O2 Delivery O2 Flow Rate FiO2 12/23/24 10:03 138/82 12/23/24 10:03 75 12/23/24 09:00 98.1 16 94 98.1 12/23/24 08:00 Room Air* 0 21 Current medications Current Medications Medications Dose Ordered Sig/Aaron Route Start Time Stop Time Status Last Admin Dose Admin Aspirin 81 mg DAILY PO 12/22/24 10:00 12/23/24 10:02 81 MG Morphine Sulfate 2 mg Q30MP PRN IV 12/21/24 14:00 Ondansetron HCl 4 mg Q4HP PRN IV 12/21/24 14:00 Metoprolol Tartrate 25 mg BID PO 12/21/24 22:00 12/23/24 10:03 25 MG Atorvastatin Calcium 80 mg HS PO 12/21/24 22:00 12/21/24 21:34 80 MG Lisinopril 10 mg DAILY PO 12/22/24 10:00 12/23/24 10:03 10 MG Ceftriaxone Sodium 50 ml @ 100 mls/hr DAILY@09 IV 12/22/24 09:00 12/23/24 10:04 100 MLS/HR Azithromycin 250 ml @ 125 mls/hr DAILY IV 12/22/24 10:00 12/23/24 10:04 125 MLS/HR Lorazepam 0.5 mg Q6HP PRN PO 12/21/24 16:30 12/22/24 18:34 0.5 MG Nitroglycerin 0.4 mg Q5MINP PRN SL 12/21/24 16:30 Guaifenesin 200 mg Q4HP PRN PO 12/22/24 16:45 12/22/24 18:40 200 MG Medication adjusted: Yes Diagnosis: unspecified mood disorder, generalized anxiety Plan : Pt currently declines use of antidepressants. Please provide referrals for outpatient mental services for therapy. If she later agrees, may offer duloxetine 30mg po daily Pt presently does not meet LPS hold criteria and may discharge after medical clearance. History of Present Illness Reason for Consult : Patient reporting depressed mood HPI : This is a 69-year-old Croatian-speaking female who presented to the hospital for chest pain. Patient has history of anxiety. 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 She reports feeling depressed and anxious for a long time. She does report her symptoms are worse since unemployed for three months. She is not use to being without work. She now lives with daughter and feels like a burden on the daughter. She has 5 children sometimes not feeling loved. She is future- oriented, wants to find work. She is often tearful during eval. She does feel depressed, low appetite and poor sleep. She denies any known trigger for anxiety, she worries about everything, especially about finding work. She denies suicidal or homicidal ideation. She denies auditory or visual hallucinations or paranoia thoughts. Discussed using antidepressant for treatment of her symptoms, and patient declines saying she does not want to rely on the medication for her mood. She does agree to talking to a therapist. Past Psychiatric History : She is receiving a Xanax from her PCP x three months and this has not been helping with her anxiety. She denies any prior psych admissions or 5150 holds. she denies any suicide attempts. She does not currently have a psychiatrist or therapy but does want to get connected to mental health. She denies previous trials of psychotropic medications. Past Medical History : per chart review, hx of HTN, Nstemi, hyperlipidemia Social History : She lives with her daughter. 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 She denies any drugs, alcohol or nicotine use. She denies any known family history of mental health problems. BENJA GOINS [facility] Dec 23, 2024 11:37
[2024-12-23 13:00] VITALS: BP 104/64; PULSE 89; RESP 18; TEMP 98.2; O2SAT 97
[2024-12-23] MEDS ORDERED: AUG875T PO (16:48)
[2024-12-23 17:00] VITALS: BP 156/100; PULSE 99; RESP 20; TEMP 99; O2SAT 96
[2024-12-23 17:10] VITALS: BP 142/86; PULSE 87; RESP 20; TEMP 98.6; O2SAT 98
--- NOTE | 2024-12-23 18:16 | DVHDS2 ---
Discharge Summary Date of Admission Dec 21, 2024 at 16:20 Date of Discharge: Dec 23, 2024 Labs/Diagnostic Data: Laboratory Results Test 12/22/24 04:49 12/21/24 18:55 12/21/24 17:00 12/21/24 12:45 White Blood Count 7.7 10^3/uL (4.4-10.8) Red Blood Count 4.87 10^6/uL (4.0-5.20) Hemoglobin 14.8 g/dL (12.2-16.2) Hematocrit 42.7 % (36.0-46.0) Mean Corpuscular Volume 87.8 fL (80.0-100.0) Mean Corpuscular Hemoglobin 30.4 pg (28.0-32.0) Mean Corpuscular Hemoglobin Concent 34.6 g/dL (32.0-36.0) Red Cell Distribution Width 13.0 % (11.8-14.3) Platelet Count 327 10^3/uL (140-450) Mean Platelet Volume 7.5 fL (6.9-10.8) Neutrophils (%) (Auto) 50.6 % (37.0-80.0) Lymphocytes (%) (Auto) 34.0 % (10.0-50.0) Monocytes (%) (Auto) 9.6 % (0.0-12.0) Eosinophils (%) (Auto) 5.5 % (0.0-7.0) Basophils (%) (Auto) 0.3 % (0.0-2.0) Neutrophils # (Auto) 3.9 10 ^3/uL (1.6-8.6) Lymphocytes # (Auto) 2.6 10 ^3/uL (0.4-5.4) Monocytes # (Auto) 0.7 10 ^3/uL (0-1.3) Eosinophils # (Auto) 0.4 10 ^3/uL (0-0.8) Basophils # (Auto) 0 10 ^3/uL (0-0.2) Nucleated Red Blood Cells 0.1 % Sodium Level 134 mmol/L (136-145) Potassium Level 4.0 mmol/L (3.5-5.1) Chloride Level 103 mmol/L (98-107) Carbon Dioxide Level 23 mmol/L (20-31) Anion Gap 8 (5-15) Blood Urea Nitrogen 7 mg/dL (9-23) Creatinine 0.60 mg/dL (0.550-1.02) Glomerular Filtration Rate Calc 98 mL/min (>90) BUN/Creatinine Ratio 11.7 (10.0-20.0) Serum Glucose 102 mg/dL (74-106) Calcium Level 8.6 mg/dL (8.7-10.4) Serum Osmolality 284 mOsm/kg (278-298) Urine Osmolality 400 mOsm/kg Troponin I High Sensitivity 4 ng/L (</=34) Test 12/21/24 11:34 12/21/24 10:20 12/21/24 09:22 Lactic Acid Level 1.0 mmol/L (0.4-2.0) Magnesium Level 1.9 mg/dL (1.6-2.6) B-Type Natriuretic Peptide 55.98 pg/mL (0-100) Urine Color Light-yellow (Yellow) Urine Clarity Clear (Clear) Urine pH 6.5 (5.0-9.0) Urine Specific [place] 1.011 (1.001-1.035) Urine Protein Negative (Negative) Urine Ketones Negative (Negative) Urine Blood Negative /uL (Negative) Urine Nitrite Negative (Negative) Urine Bilirubin Negative (Negative) Urine Urobilinogen Normal mg/dL (Negative) Urine Leukocyte Esterase Negative /uL (Negative) Urine RBC 1 /hpf (0 - 4) Urine Microscopic WBC < 1 /HPF (0-5) Urine Squamous Epithelial Cells None seen /hpf (<5) Urine Bacteria None seen /hpf (None Seen) Urine Sodium 60 mmol/L (40-220) Urine Glucose Normal mg/dL (Normal) Other Laboratory Tests 12/22/24 04:49 Brief Hx & Hospital Course: 69-year-old female with a known history of hypertension, dyslipidemia, anxiety disorder initially presented to the hospital with the chest pain as well as anxiety spells. Also patient complaining of headache. Patient also have known history of anxiety disorder and currently ruling out depression. Tele psych was consulted who recommended the patient to be on antidepressant but patient does not want to take it. Tele psych cleared the patient to be discharged. Patient denies any chest pain headache and troponins are negative. Patient is being discharged under stable condition. Please follow up outpatient with the PCP as well as Psychiatry in 1-2 weeks. Condition at Discharge: Stable Final Diagnosis/Problems List 1. Bilateral patchy infiltrates suspected pneumonia, clinically stable 2. Anxiety disorder 3. Headache resolved Discharge Disposition: Home SNF Discharge Will this Physician continue t: No Discharge Instruct/Medications Diet: Cardiac 2g Na,low cholest Activity: No Restrictions, As Tolerated Follow Up/Referral: Follow up with PCP in 1-2 weeks Medications: Augmentin has been described. Discharge Statement: "Patient was advised to return to the ER or call 911 if any headaches, dizziness, shortness of breath, chest pain, abdominal pain, bleeding, fevers, or worsening of medical condition. Patient was counseled about treatment plan, medications, possible side effects, patientverbalized understanding. All questions were answered to the best of my ability. This discharge took greater then 30 minutes in planning, reviewing documentation, counseling the patient, and discussing with other team members." ASSESSMENT ASSESSMENT Assessment 1. Bilateral patchy infiltrates suspected pneumonia, clinically stable 2. Anxiety disorder 3. Headache resolved Date of Service: Dec 23, 2024 Billing Provider: SANAM ATKINS MD Common Visit Codes: 15687-VHA/OBS DISCH DAY >30min SANAM ATKINS MD Dec 23, 2024 18:16
--- NOTE | 2024-12-25 10:29 | ECG ---
[facility] Test Date: 2024-12-21 Test Time: 09:26:59 Pat Name: FARZANA ESCOBAR Department: ER Room: [facility]1T B Gender: F Book Packer: : 1955 Requested By: CY CLARKE Order Number: [id number] Reading MD: Gerber Dunaway Measurements Intervals [place] Rate: 104 P: 63 NC: 190 QRS: 55 QRSD: 87 T: 74 QT: 331 QTc: 436 Interpretive Statements Sinus tachycardia LAE, consider biatrial enlargement Abnormal R-wave progression, early transition ST elevation, consider inferior injury Electronically Signed On 12-26-2024 22:28:07 PDT by Gerber Dunaway Please click the below link to view image of tracing.
== END 2024-12-23 18:20 | disposition home or self-care (01) | DRG 178 ==
LOC: ER 09:07 → OVERFLOW 16:20 → TELE-EAST 12-22 17:55
PROVIDERS: ADMIT Internal Medicine; ATTEND Internal Medicine
DX: J15.69 Pneumonia due to other Gram-negative bacteria (principal); E87.1 Hypo-osmolality and hyponatremia; J15.9 Unspecified bacterial pneumonia; I10 Essential (primary) hypertension; F39 Unspecified mood [affective] disorder; F41.1 Generalized anxiety disorder; E78.5 Hyperlipidemia, unspecified; I25.2 Old myocardial infarction; Z79.82 Long term (current) use of aspirin; Z79.899 Other long term (current) drug therapy
CPT/HCPCS: 36415; 71045; 80048; 81001; 83605; 83735; 83880; 83930; 83935; 84300; 84484; 85025; 87040; 93005; 93306; 96361; 96365; 99291; G0378; J0692

== ENCOUNTER 2025-01-02 08:53 | Inpatient (IN) | payer MEDICARE, MEDICAID ==
[~2025-01-02] VITALS: Ht 154.9 cm; Wt 66.7 kg
[~2025-01-02 08:53] MED LIST changes: +ALPR0.255 GT; -ASPI325T6 PO; -ATOR80TA PO; +AUG875T PO; +BENZ100C97 PO; -CIPR-173 PO; -DOXY100C79 PO; -HYDR25CA PO; -LEVO500T91 PO; -MET25T PO; -NITR-87 PO
[2025-01-02 09:39] LABS: Hematocrit 47.2 % (36.0-46.0); Hemoglobin 16.6 g/dL (12.2-16.2); Mean Corpuscular Hemoglobin 31.0 pg (28.0-32.0); Mean Corpuscular Volume 88.2 fL (80.0-100.0); Nucleated Red Blood Cells % 0.1 %
[2025-01-02 09:49] LABS: Potassium 4.0 mmol/L (3.5-5.1)
[2025-01-02 09:50] LABS: Anion Gap 8 (5-15); Calcium 10.1 mg/dL (8.7-10.4); Carbon Dioxide 27 mmol/L (20-31)
[2025-01-02 09:55] LABS: BUN/Creatinine Ratio 9.6 (10.0-20.0); Blood Urea Nitrogen 7 mg/dL (9-23); Chloride 93 mmol/L (98-107); Glucose 145 mg/dL (74-106); Sodium 128 mmol/L (136-145)
[2025-01-02] MEDS: LORazepam 0.5 MG TAB PO ONE (09:57)
--- NOTE | 2025-01-02 10:01 | ED.PDOC ---
HPI Comments 69 y/o F, presents to the ED for CC of high blood pressure. Patient states, she has been experiencing hypertensive blood pressure readings with associated symptoms of headache and neck pain onset, this morning (01/02/25). Patient denies dizziness, nausea, vomiting, or blurred vision. No other symptoms or modifying factors present at this time. Chief Complaint: High Blood Pressure Time Seen by MD: 09:20 Primary Care Provider: ? Reviewed Notes: Nurses Notes, Medications, Allergies Allergies: Coded Allergies: NO KNOWN ALLERGIES (Unverified , 10/14/15) Home Meds Active Scripts Amoxicillin & Pot Clavulanate (AUGMENTIN TABLET) 875 Mg Tb, 875 MG PO BID for 5 Days, #10 TAB Prov:SANAM ATKINS MD 12/23/24 Reported Medications Benzonatate (Benzonatate) 100 Mg Cap, 1-2 CAP PO TID, #60 CAP 12/22/24 Alprazolam (Alprazolam) 0.25 Mg Tab, 0.25 MG GT BID, TAB 12/22/24 Lisinopril (Lisinopril) 10 Mg Tab, 1 TAB PO DAILY for 30 Days, #30 03/13/24 Information Source: Patient Mode of Arrival: Ambulatory Severity: Moderate Timing: Hours Duration: Since onset Prehospital treatment: None Onset: At Rest Cardiac Risk Factors: HTN PE Risk Factors: None History of: None Modifying Factors: Nothing Associated Signs and Symptoms: None Past Medical History PAST MEDICAL HISTORY: Anxiety, HTN Surgical History: Denies all surgeries CHIEF ORDER DISPATCHER History: No Pertinent CHIEF ORDER DISPATCHER History Family History Family History: Reviewed,noncontributory to illness Social History Smoker: Non-Smoker Alcohol: Denies ETOH Use Drugs: Marijuana Lives In: Home Constitutional: denies: chills, diaphoresis, fatigue, fever, malaise, sweats, weakness, others EENTM: denies: blurred vision, double vision, ear bleeding, ear discharge, ear drainage, ear pain, ear ringing, eye pain, eye redness, hearing loss, mouth pain, mouth swelling, nasal discharge, nose bleeding, nose congestion, nose pain, photophobia, tearing, throat pain, throat swelling, voice changes, others Respiratory: denies: cough, hemoptysis, orthopnea, SOB at rest, shortness of breath, SOB with excertion, stridor, wheezing, others Cardiovascular: denies: chest pain, dizzy spells, diaphoresis, Dyspnea on exertion, edema, irregular heart beat, left arm pain, lightheadedness, palpitations, PND, syncope, others Gastrointestinal: denies: abdomen distended, abdominal pain, blood streaked bowels, constipated, diarrhea, dysphagia, difficulty swallowing, hematemesis, melena, nausea, poor appetite, poor fluid intake, rectal bleeding, rectal pain, vomiting, others Genitourinary: denies: abnormal vagina bleeding, burning, dyspareunia, dysuria, flank pain, frequency, hematuria, incontinence, pain, , vagina discharge, urgency, others Neurological: reports: headache; denies: dizziness, fainting, left sided numbness, left sided weakness, numbness, paresthesia, pre-existing deficit, right sided numbness, right sided weakness, seizure, speech problems, tingling, tremors, weakness, others Musculoskeletal: reports: neck pain; denies: back pain, gout, joint pain, joint swelling, muscle pain, muscle stiffness, others Integumetry: denies: bruises, change in color, change in hair/nails, dryness, laceration, lesions, lumps, rash, wounds, others Allergic/Immunocompromised: denies: Difficulty Healing, Frequent Infections, Hives, Itching, others Hematologic/Lymphatic: denies: anemia, blood clots, easy bleeding, easy bruising, swollen glands, others Endocrine: denies: excessive hunger, excessive sweating, excessive thirst, excessive urination, flushing, intolerance to cold, intolerance to heat, unexplained weight gain, unexplained weight loss, others Psychiatric: denies: anxiety, bipolar disorder, depression, hopeless, panic disorder, schizophrenia, sleepless, suicidal, others All Other Systems: Reviewed and Negative Physical Exam General Appearance: Moderate Distress HEENT: Normal ENT Inspection, Pharynx Normal, TMs Normal Neck: Full Range of Motion, Non-Tender, Normal, Normal Inspection Respiratory: Chest Non-Tender, Lungs Clear, No Accessory Muscle Use, No Respiratory Distress, Normal Breath Sounds Cardiovascular: No Edema, No JVD, No Murmur, No Gallop, Normal Peripheral Pulses, Regular Rate/Rhythm Breast Exam: Deferred Gastrointestinal: No Organomegaly, Non Tender, No Pulsatile Mass, Normal Bowel Sounds, Soft Genitalia: Deferred Pelvic: Deferred Rectal: Deferred Extremities: No calf tenderness, Normal capillary refill, Normal inspection, Normal range of motion, Non-tender, No pedal edema Musculoskeletal : Apperance: Normal Neurologic: Alert, bow making machine operator II-XII nml as Tested, No Motor Deficits, Normal Affect, Normal Mood, No Sensory Deficits Cerebellar Function: Normal Reflexes: Normal Skin: Dry, Normal Color, Warm Peripheral Pulses: 3+ Radial (R), 3+ Radial (L) Lymphatic: No Adenopathy EKG EKG : Pulse Rate (adult): 113 [place]: Normal Cardiac Rhythm: ST Block: None Hypertrophy: None ST: Normal Was a procedure done? Was a procedure done?: No CP Differential Dx Differential Diagnosis: A-fib, A-Flutter, Angina, Anxiety / Panic Attack, Atrial Dysrhythmia, Electrolyte Disorder Differential Diagnosis: HTN Essential, HTN Accelerated X-Ray, Labs, Meds, VS Vital Signs Date Time Temp Pulse Resp B/P (MAP) Pulse Ox O2 Delivery O2 Flow Rate FiO2 01/02/25 10:01 113 01/02/25 09:58 208/111 01/02/25 09:58 99.1 111 18 97 99.1 01/02/25 09:58 111 16 01/02/25 09:18 113 01/02/25 09:00 98.3 122 16 189/125 (146) 95 98.3 Lab Test 01/02/25 10:26 01/02/25 09:30 Range/Units Troponin I High Sensitivity 3 L < 3 L </=34 ng/L White Blood Count 7.1 4.4-10.8 10^3/uL Red Blood Count 5.35 H 4.0-5.20 10^6/uL Hemoglobin 16.6 H 12.2-16.2 g/dL Hematocrit 47.2 H 36.0-46.0 % Mean Corpuscular Volume 88.2 80.0-100.0 fL Mean Corpuscular Hemoglobin 31.0 28.0-32.0 pg Mean Corpuscular Hemoglobin Concent 35.2 32.0-36.0 g/dL Red Cell Distribution Width 13.1 11.8-14.3 % Platelet Count 357 140-450 10^3/uL Mean Platelet Volume 7.4 6.9-10.8 fL Neutrophils (%) (Auto) 62.1 37.0-80.0 % Lymphocytes (%) (Auto) 27.9 10.0-50.0 % Monocytes (%) (Auto) 6.8 0.0-12.0 % Eosinophils (%) (Auto) 2.4 0.0-7.0 % Basophils (%) (Auto) 0.8 0.0-2.0 % Neutrophils # (Auto) 4.4 1.6-8.6 10 ^3/uL Lymphocytes # (Auto) 2.0 0.4-5.4 10 ^3/uL Monocytes # (Auto) 0.5 0-1.3 10 ^3/uL Eosinophils # (Auto) 0.2 0-0.8 10 ^3/uL Basophils # (Auto) 0.1 0-0.2 10 ^3/uL Nucleated Red Blood Cells 0.1 % Sodium Level 128 L 136-145 mmol/L Potassium Level 4.0 3.5-5.1 mmol/L Chloride Level 93 L 98-107 mmol/L Carbon Dioxide Level 27 20-31 mmol/L Anion Gap 8 5-15 Blood Urea Nitrogen 7 L 9-23 mg/dL Creatinine 0.73 0.550-1.02 mg/dL Glomerular Filtration Rate Calc 90 >90 mL/min BUN/Creatinine Ratio 9.6 L 10.0-20.0 Serum Glucose 145 H 74-106 mg/dL Calcium Level 10.1 8.7-10.4 mg/dL Current Medications Medications (Trade) Dose Ordered Sig/Aaron Route Start Time Stop Time Status Last Admin Clonidine HCl (Catapres Tablet) 0.2 mg ONCE ONCE PO 01/02/25 09:30 01/02/25 09:31 DC 01/02/25 09:58 Lorazepam (Ativan Tablet) 2 mg ONCE ONCE PO 01/02/25 09:30 01/02/25 09:31 DC 01/02/25 09:57 [place] [id number] Ph: [phone] DIAGNOSTIC IMAGING Diagnostic Imaging Report : [id number] Signed PATIENT: FARZANA ESCOBAR ACCT: [id number] UNIT: [id number] : 1955 LOC: ER ROOM / BED: / AGE / SEX: 69 / F ADM STATUS: REG ER SERVICE 0920 ORDERING PHYSICIAN: MAU HERNÁNDEZ MD PROCEDURE(s): CXRP - CHEST PORTABLE REASON: sob ORDER NUMBER(s): [id number], ACCESSION NUMBER(s): [id number] CHEST RADIOGRAPH Indication: sob Technique: Single frontal view of the chest was obtained COMPARISON: XY CHEST PORTABLE on DOS: 12/21/24, XY CHEST PORTABLE on DOS: 09/16/24, XY CHEST PORTABLE on DOS: 03/15/24, XY CHEST PORTABLE on DOS: 03/11/24, XY CHEST PORTABLE on DOS: 03/08/24 FINDINGS: Lines and Tubes: None Lungs: Multifocal airspace disease chronic fibrotic changes. Pleura: No effusion. No pneumothorax. Cardiomediastinal contours: Unremarkable Bones: Unremarkable IMPRESSION: Chronic fibrotic changes with probable superimposed multifocal airspace disease ATED BY: YASH KAT MD DICTATED DATE/TIME: 01/02/25 1023 SIGNED BY: YASH KAT MD SIGNED DATE/TIME: 01/02/25 1023 CC: Patient alert. Complaining of having high blood pressure. Shortness a breath. Vitals stable. Recently seen in his hospital. Chest x-ray does show possible pneumonitis. Was given clonidine. Was given Ativan. She does have chest pressure. Was given steroid. Was given Levaquin. Explained to the patient. Continue to monitor. Time of 1ST Reevaluation: 09:50 Reevaluation 1ST: Unchanged Patient Education/Counseling: Diagnosis, Treatment Family Education/Counseling: No Family Present SEPSIS Sepsis Screen Physician Orders Chest Portable (01/02/25 09:20) Urinalysis (01/02/25 09:20) Troponin-I Hs (01/02/25 12:20) Electrocardigram (01/02/25 09:44) Vital Signs Date Time Temp Pulse Resp B/P (MAP) Pulse Ox O2 Delivery O2 Flow Rate FiO2 01/02/25 10:01 113 01/02/25 09:58 208/111 01/02/25 09:58 99.1 111 18 97 99.1 01/02/25 09:58 111 16 01/02/25 09:18 113 01/02/25 09:00 98.3 122 16 189/125 (146) 95 98.3 Laboratory Tests Test 01/02/25 09:30 White Blood Count 7.1 10^3/uL (4.4-10.8) Medications Medications Dose Ordered Sig/Aaron Route Start Time Stop Time Status Last Admin Dose Admin Clonidine HCl 0.2 mg ONCE ONCE PO 01/02/25 09:30 01/02/25 09:31 DC 01/02/25 09:58 Lorazepam 2 mg ONCE ONCE PO 01/02/25 09:30 01/02/25 09:31 DC 01/02/25 09:57 Departure 1 Departure Time of Disposition: 11:36 Impression: Primary Impression: Hypertensive urgency Additional Impression: Pneumonitis Disposition: ADMITTED INPATIENT Admit to: Med Surg Condition: Guarded Critical Care Note Critical Care Time?: Yes (90 min-critical care time only) Critical care comment: Blood pressure elevated Stability Stability form required: No Heart Score Heart Score: Heart Score Response (Comments) Value History Slightly Suspicious 0 EKG Normal 0 Age >65 2 Risk Factors >3 or Hx ASHD 2 Troponin Normal limit 0 Total 4 I personally scribed for MAU HERNÁNDEZ MD ([email or web address]) on 01/02/25 at 10:01. Electronically submitted by Luana Gabriel ([email or web address]). I personally scribed for MAU HERNÁNDEZ MD ([email or web address]) on 01/02/25 at 10:29. Electronically submitted by Luana Gabriel ([email or web address]). MAU HERNÁNDEZ MD Jan 02, 2025 10:01
--- NOTE | 2025-01-02 10:25 | DVH ---
CHEST RADIOGRAPH Indication: sob Technique: Single frontal view of the chest was obtained COMPARISON: XY CHEST PORTABLE on DOS: 12/21/24, XY CHEST PORTABLE on DOS: 09/16/24, XY CHEST PORTABLE o n DOS: 03/15/24, XY CHEST PORTABLE on DOS: 03/11/24, XY CHEST PORTABLE on DOS: 03/08/24 FINDINGS: Lines and Tubes: None Lungs: Multifocal airspace disease chronic fibrotic changes. Pleura: No effusion. No pneumothorax. Cardiomediastinal contours: Unremarkable Bones: Unremarkable IMPRESSION: Chronic fibrotic changes with probable superimposed multifocal airspace disease
[2025-01-02 11:57] VITALS: PULSE 92; RESP 18; O2SAT 95
[2025-01-02] MEDS: methylPREDNISolone SOD SUCC 125 MG/2 ML VL IV ONE (12:09)
[2025-01-02] MEDS ORDERED: ONDANSETRON HCL 4 MG/2 ML VIAL IV PRN (12:45)
[2025-01-02] MEDS ORDERED: MORPHINE SULFATE INJ 2 MG/ml SYRG IV PRN (12:45)
[2025-01-02] MEDS ORDERED: NITROGLYCERIN 0.4 MG SL TAB SL PRN (12:45)
[2025-01-02] MEDS ORDERED: DOCUSATE SOD 100 MG CAP PO PRN (12:45)
[2025-01-02] MEDS ORDERED: LISI-283 PO (12:49)
[2025-01-02] MEDS ORDERED: PARO10TA93 PO (12:49)
[2025-01-02] MEDS ORDERED: hydrOXYzine 25 MG TAB or CAP PO PRN (13:00)
--- NOTE | 2025-01-02 13:24 | DVHHP2 ---
History of Present Illness Reason for Visit: High blood pressure History of Present Illness Shana Monae is a 69-year-old female with past medical history of anxiety and hypertension, who came to the hospital for high blood pressure. Patient states she came to the hospital due to her blood pressure remaining elevated. She also states that she has not been sleeping well due to too many thoughts in her head and anxiety. She went to her primary care provider a couple days ago who gave her a new prescription of Paroxetine. She states she does not like it and doesn't want to take it anymore. Patient was recently admitted for similar complaints. She did have a psych consult during that visit, and an ECHO compl eted that showed her EF about 55%. Cardiovascular: HTN Psych: Anxiety Past Surgical History: None Smoke: No ALCOHOL: none Lives: with Family Domestic Violence: Neg Review of Systems Constitutional: Yes: Other (difficulty sleeping); No: Fever, Chills, Sweats, Weakness, Malaise Eyes: No: Pain, Vision change, Conjunctivae inflammation, Eyelid inflammation, Other, Redness ENT: No: Ear pain, Ear discharge, Nose pain, Nose discharge, Nose congestion, Mouth pain, Mouth swelling, Throat pain, Throat swelling Respiratory: No: Cough, Dry, Shortness of breath, SOB with excertion, Wheezing, Hemoptysis, Pleuritic Pain, Sputum, Wheezing, Other Cardiovascular: Other (hypertension); No: Chest Pain, Palpitations, Orthopnea, Paroxysmal Noc. Dyspnea, Edema, Lt Headedness Gastrointestinal: No: Nausea, Vomiting, Abdominal Pain, Diarrhea, Constipation, Melena, Hematochezia, Other Genitourinary: No Dysuria, No Frequency, No Incontinence, No Hematuria, No Retention, No Other Musculoskeletal: No: other, neck pain, shoulder pain, arm pain, back pain, hand pain, leg pain, foot pain Skin: No: Rash, Lesions, Jaundice, Bruising, Other Neurological: No: Weakness, Numbness, Incoordination, Change in speech, Confusion, Seizures, Other Allergies: Coded Allergies: NO KNOWN ALLERGIES (Unverified , 10/14/15) Medications Current Medications Medications Dose Ordered Sig/Aaron Route Start Time Stop Time Status Last Admin Dose Admin Sodium Chloride 10 ml Q8HR IV 01/02/25 14:00 UNV Acetaminophen/ Hydrocodone Bitart 1 tab Q4HP PRN PO 01/02/25 12:45 UNV Ondansetron HCl 4 mg Q4HP PRN IV 01/02/25 12:45 UNV Docusate Sodium 100 mg BIDPRN PRN PO 01/02/25 12:45 UNV Acetaminophen 650 mg Q6HP PRN PO 01/02/25 12:45 UNV Nitroglycerin 0.4 mg Q5MINP PRN SL 01/02/25 12:45 UNV Morphine Sulfate 2 mg Q30M PRN IV 01/02/25 12:45 UNV Patient Own Medication 1 tab DAILY PO 01/03/25 10:00 UNV Patient Own Medication 1 tab DAILY PO 01/03/25 10:00 UNV Clonidine HCl 0.1 mg Q6HP PRN PO 01/02/25 13:00 UNV Exam Vital Signs Vital Signs Date Time Temp Pulse Resp B/P (MAP) Pulse Ox O2 Delivery O2 Flow Rate FiO2 01/02/25 11:57 92 18 116/69 (85) 95 01/02/25 11:57 Room Air* 0 21 01/02/25 09:58 99.1 99.1 General Appearance: Alert, Oriented X3, Cooperative, mild distress HEENT: Atraumatic, PERRLA Respiratory: Clear to auscultation, Normal air movement Cardiovascular: Regular rate, Normal S1, Normal S2 Abdominal: Normal bowel sounds, Soft, No tenderness, No hepatospenomegaly Extremities: No clubbing, No cyanosis, No edema Skin: No rashes, No breakdown Neuro: Normal gait, Normal speech, Strength at 5/5 X4 ext Psych/Mental Status: Mental status NL, Mood NL Labs/Xrays Labs Test 01/02/25 10:26 01/02/25 09:30 Range/Units Troponin I High Sensitivity 3 L </=34 ng/L White Blood Count 7.1 4.4-10.8 10^3/uL Red Blood Count 5.35 H 4.0-5.20 10^6/uL Hemoglobin 16.6 H 12.2-16.2 g/dL Hematocrit 47.2 H 36.0-46.0 % Mean Corpuscular Volume 88.2 80.0-100.0 fL Mean Corpuscular Hemoglobin 31.0 28.0-32.0 pg Mean Corpuscular Hemoglobin Concent 35.2 32.0-36.0 g/dL Red Cell Distribution Width 13.1 11.8-14.3 % Platelet Count 357 140-450 10^3/uL Mean Platelet Volume 7.4 6.9-10.8 fL Neutrophils (%) (Auto) 62.1 37.0-80.0 % Lymphocytes (%) (Auto) 27.9 10.0-50.0 % Monocytes (%) (Auto) 6.8 0.0-12.0 % Eosinophils (%) (Auto) 2.4 0.0-7.0 % Basophils (%) (Auto) 0.8 0.0-2.0 % Neutrophils # (Auto) 4.4 1.6-8.6 10 ^3/uL Lymphocytes # (Auto) 2.0 0.4-5.4 10 ^3/uL Monocytes # (Auto) 0.5 0-1.3 10 ^3/uL Eosinophils # (Auto) 0.2 0-0.8 10 ^3/uL Basophils # (Auto) 0.1 0-0.2 10 ^3/uL Nucleated Red Blood Cells 0.1 % Sodium Level 128 L 136-145 mmol/L Potassium Level 4.0 3.5-5.1 mmol/L Chloride Level 93 L 98-107 mmol/L Carbon Dioxide Level 27 20-31 mmol/L Anion Gap 8 5-15 Blood Urea Nitrogen 7 L 9-23 mg/dL Creatinine 0.73 0.550-1.02 mg/dL Glomerular Filtration Rate Calc 90 >90 mL/min BUN/Creatinine Ratio 9.6 L 10.0-20.0 Serum Glucose 145 H 74-106 mg/dL Calcium Level 10.1 8.7-10.4 mg/dL CHEST RADIOGRAPH FINDINGS: Lines and Tubes: None Lungs: Multifocal airspace disease chronic fibrotic changes. Pleura: No effusion. No pneumothorax. Cardiomediastinal contours: Unremarkable Bones: Unremarkable IMPRESSION: Chronic fibrotic changes with probable superimposed multifocal airspace disease Assessment/Plan Assessment/Plan Assessment: Hypertensive urgency, Anxiety, Plan: Admit to Tele, ECHO, PRN Antihypertensives, PRN anxiety medications, Consider cardiology consult if symptoms persist, Home medications reconciled, Plan discussed with: Patient My Orders Orders - TRENT MARTE Procedure Category Date Status Time Admit ADMIT 01/02/25 Transmitted 12:45 Code Status CODE 01/02/25 Transmitted 12:45 2 Gm Sodium Diet DIET 01/02/25 Transmitted Lunch Sodium Chloride Lock PHA 01/02/25 Logged (Saline Lock Ns) 14:00 Hydrocodone-Acet PHA 01/02/25 Logged 5/325mg Tab ([place] 12:45 Ondansetron Hcl PHA 01/02/25 Logged (Zofran) 12:45 Docusate Sodium PHA 01/02/25 Logged Capsule (Colace 12:45 Complete Blood Count LAB 01/03/25 Verified 04:00 Echo 2d Mode Cardiac US 01/02/25 Logged DOP 12:45 Condition: Serious [facility] 01/02/25 In Process 12:45 Acetaminophen Tablet [facility] 01/02/25 Logged (Tylenol Tablet) 12:45 Nitroglycerin [facility] 01/02/25 Logged Sublingual (Ntrostat 12:45 Morphine Sulfate PHA 01/02/25 Logged Injection 12:45 Stat Ekg For Chest [facility] 01/02/25 In Process Pain 12:45 Notify Md Of Changes [facility] 01/02/25 In Process From Base 12:45 Human Resources Records Clerk For [facility] 01/02/25 In Process 24 Hours 12:45 Emergency Dysrhythmia [facility] 01/02/25 In Process Protocol 12:45 Rhythm Strips Once [facility] 01/02/25 In Process Every Shift 12:45 Oxygen By Nasal RT 01/02/25 Transmitted Cannula 12:45 (Nf) Lisinopril & PHA 01/03/25 Logged Hydrochlorothiazi (Lis 10:00 (Nf) Paroxetine PHA 01/03/25 Logged Hydrochloride 10:00 Clonidine Hcl Tablet [facility] 01/02/25 Logged (Catapres Tablet) 13:00 Date of Service: Jan 02, 2025 Billing Provider: TRENT MARTE Common Visit Codes: [id number] INP/OBS CARE (MOD) TRENT MARTE Jan 02, 2025 13:24
[2025-01-02] MEDS: SODIUM CHLOR 0.9% PF (SALINE LOCK) 10ML VIAL/SYR IV SCH (14:09)
[2025-01-02] MEDS: HYDROcodone-ACET 5/325MG TAB PO PRN (18:30)
[2025-01-02 22:41] VITALS: PULSE 95; RESP 17
[2025-01-02] MEDS: TEMAZEPAM 15 MG CAP PO PRN (23:20)
[2025-01-03] VITALS (9 sets, daily range): BP systolic 114–155; BP diastolic 70–88; PULSE 65–96; RESP 14–18; TEMP 97.5–98.8; O2SAT 94–98
[2025-01-03 07:00] LABS: Hematocrit 43.0 % (36.0-46.0); Hemoglobin 15.1 g/dL (12.2-16.2); Mean Corpuscular Hemoglobin 30.5 pg (28.0-32.0); Mean Corpuscular Volume 87.1 fL (80.0-100.0); Nucleated Red Blood Cells % 0.6 %
[2025-01-03] MEDS: hydroCHLOROthiazide 25 MG TAB PO SCH (09:51)
[2025-01-03] MEDS: PARoxetine 20 MG TAB PO SCH (09:52)
[2025-01-03] MEDS: LISINOPRIL 5 MG TAB PO SCH (09:52)
[2025-01-03] MEDS: SODIUM CHLORIDE 0.9% 1,000 ML IV SCH (10:00)
[2025-01-03] MEDS ORDERED: PATIENTS OWN MEDICATION (Lisinopril & Hydrochlorothiazi (Lisinopril/Hydrochlorothi) 1 TAB) PO SCH (10:00)
[2025-01-03] MEDS ORDERED: PATIENTS OWN MEDICATION (Paroxetine Hydrochloride 1 TAB) PO SCH (10:00)
[2025-01-03] MEDS: ACETAMINOPHEN 325 MG TAB PO PRN (12:01)
--- NOTE | 2025-01-03 14:14 | DVHPNRES ---
Progress Note Date Seen: Jan 03, 2025 Resident Creating Document: JEFFERY CARMONA RESIDENT Medical Necessity Reason Pt with a Central, PICC or Fol: No Subjective Review of Systems Shana Monae is a 69-year-old female with past medical history of anxiety and hypertension, who came to the hospital for high blood pressure. Patient states she came to the hospital due to her blood pressure remaining elevated. She also states that she has not been sleeping well due to too many thoughts in her head and anxiety. She went to her primary care provider a couple days ago who gave her a new prescription of Paroxetine. She states she does not like it and doesn't want to take it anymore. Patient was recently admitted for similar complaints. She did have a psych consult during that visit, and an ECHO completed that showed her EF about 55%. The patient was seen and examined on the bedside. She is alert oriented x3. Mentioned no overnight events and also feeling better since yesterday. Constitutional: No: Fever, Chills, Sweats, Weakness, Malaise, Other Eyes: No: Pain, Vision change, Conjunctivae inflammation, Eyelid inflammation, Other, Redness ENT: No: Ear pain, Ear discharge, Nose pain, Nose discharge, Nose congestion, Mouth pain, Mouth swelling, Throat pain, Throat swelling, Other Respiratory: Shortness of breath, improving No: Cough, Dry,Wheezing, Hemoptysis, Pleuritic Pain, Sputum, Wheezing, Other Cardiovascular: No: Chest Pain, Palpitations, Orthopnea, Paroxysmal Noc. Dyspnea, Edema, Lt Headedness, Other Gastrointestinal: No: Nausea, Vomiting, Abdominal Pain, Diarrhea, Constipation, Melena, Hematochezia, Other Musculoskeletal: Neck pain,no: other, shoulder pain, arm pain, back pain, hand pain, leg pain, foot pain Neurological:; Headache, No: Weakness, Numbness, Incoordination, Change in speech, Confusion, Seizures Objective vital signs Vital Sign Date Time Temp Pulse Resp B/P (MAP) Pulse Ox O2 Delivery O2 Flow Rate FiO2 01/03/25 12:36 98.8 92 16 145/88 (107) 97 98.8 01/03/25 08:00 Room Air* 0 21 Total Intake and Output 01/02/25 01/02/25 01/03/25 15:00 23:00 07:00 Intake Total 100 ml 100 ml Balance 100 ml 100 ml medications Current Medications Medications Dose Ordered Sig/Aaron Route Start Time Stop Time Status Last Admin Dose Admin Sodium Chloride 10 ml Q8HR IV 01/02/25 14:00 01/03/25 14:01 10 ML Ondansetron HCl 4 mg Q4HP PRN IV 01/02/25 12:45 Acetaminophen 650 mg Q6HP PRN PO 01/02/25 12:45 01/03/25 12:01 650 MG Patient Own Medication 1 tab DAILY PO 01/03/25 10:00 UNV Patient Own Medication 1 tab DAILY PO 01/03/25 10:00 UNV Paroxetine HCl 10 mg DAILY PO 01/03/25 10:00 01/03/25 09:53 10 MG Lisinopril 10 mg DAILY PO 01/03/25 10:00 01/03/25 09:52 10 MG Hydrochlorothiazide 12.5 mg DAILY PO 01/03/25 10:00 01/03/25 09:51 12.5 MG Sodium Chloride 1,000 ml @ 75 mls/hr [id number] IV 01/03/25 10:00 Examination Physical examination: General Appearance: Alert, Oriented X3, Cooperative, No acute distress HEENT: Atraumatic, PERRLA, EOMI, Mucous membrane moist/pink Respiratory: Clear to auscultation, Normal air movement Cardiovascular: Regular rate, Normal S1, Normal S2, No murmurs, no chest wall tenderness Abdominal: Normal bowel sounds, Soft, No tenderness, No hepatospenomegaly, No masses Extremities: No clubbing, No cyanosis, No edema, Normal pulses, No tenderness/swelling Skin: No rashes, No breakdown, No significant lesion Neuro: Normal gait, Normal speech, Strength at 5/5 X4 ext, Normal tone, Sensation intact, Cranial nerves 3-12 NL, Reflexes 2+ Psych/Mental Status: Mental status NL, Mood NL laboratory and microbiology Laboratory Tests 01/03/25 05:49 01/02/25 09:30 Test 01/02/25 09:30 Range/Units Serum Glucose 145 H 74-106 mg/dL Microbiology Date/Time Source Procedure Growth Status 01/03/25 05:05 Nose MRSA Screen - Final Complete Labs and/or images reviewed: Labs reviewed by me, Image(s) reviewed by me Problem List/Assessment/Plan Problem List/Assessment/Plan Assessment and Plan: # Hypertensive Urgency - Echo on 12/27 showed LVEF likely normal 50-55%. Mild LVH. Moderate diastolic dysfunction - Initially treated with clonidine 0.1 mg once - Continue lisinopril 10 mg p.o. daily and hydrochlorothiazide 12.5 mg daily # History of depression/anxiety - Continue [id number] mg p.o. daily # Asymptomatic hyponatremia - IV normal saline at 75 mL/hour # PUD prophylaxis - Pepcid 20 mg p.o. daily # DVT prophylaxis - Lovenox 40 mg sc daily. Goal of care discussed with the patient for more than 20 minutes full code Plan discussed with patient and nurse Plan discussed with Dr. Hammond Plan discussed with: Patient, Other My Orders My Orders Orders - JEFFERY CARMONA Procedure Category Date Status Time Sodium Chloride 0.9% PHA 01/03/25 In Process 10:00 Date of Service: Jan 03, 2025 Billing Provider: ENZO HAMMOND MD Common Visit Codes: [id number] INP/OBS CARE(HIGH) JEFFERY CARMONA Jan 03, 2025 14:14 ENZO HAMMOND MD Jan 04, 2025 08:40
[2025-01-03] MEDS: MELATONIN 5 MG TAB PO ONE (22:43)
[2025-01-04 01:00] VITALS: BP 119/71; PULSE 73; RESP 14; TEMP 97.8; O2SAT 97
[2025-01-04 05:00] VITALS: BP 141/83; PULSE 71; RESP 16; TEMP 98.4; O2SAT 96
[2025-01-04 06:51] LABS: Hematocrit 46.0 % (36.0-46.0); Hemoglobin 16.0 g/dL (12.2-16.2); Mean Corpuscular Hemoglobin 30.4 pg (28.0-32.0); Mean Corpuscular Volume 87.5 fL (80.0-100.0); Nucleated Red Blood Cells % 0.1 %
[2025-01-04 07:00] LABS: Anion Gap 6 (5-15); Carbon Dioxide 27 mmol/L (20-31); Potassium 3.9 mmol/L (3.5-5.1)
[2025-01-04 07:01] LABS: Calcium 9.4 mg/dL (8.7-10.4)
[2025-01-04 07:06] LABS: BUN/Creatinine Ratio 16.9 (10.0-20.0); Blood Urea Nitrogen 12 mg/dL (9-23); Glucose 92 mg/dL (74-106)
[2025-01-04 07:08] LABS: Chloride 96 mmol/L (98-107); Sodium 129 mmol/L (136-145)
[2025-01-04 08:00] VITALS: PULSE 70; PULSE 72; RESP 18; O2SAT 95
[2025-01-04 09:00] VITALS: BP 173/81; PULSE 91; RESP 18; TEMP 99.1; O2SAT 97
[2025-01-04] MEDS ORDERED: BUSP10TA31 PO (11:22)
[2025-01-04] MEDS ORDERED: AMLO1TAB22 PO (11:22)
[2025-01-04 13:44] VITALS: BP 178/85; PULSE 90; RESP 14; TEMP 97.8; O2SAT 96
[2025-01-04] MEDS: clonazePAM 0.5 MG TAB PO ONE (13:59)
--- NOTE | 2025-01-04 18:16 | DVHDSRES ---
Discharge Summary Date of Admission Resident Creating Document: JEFFERY CARMONA RESIDENT Jan 02, 2025 at 12:45 Date of Discharge: Jan 04, 2025 Admitting Diagnosis Hypertensive Urgency Wounds: No wound was present. Labs/Diagnostic Data: Laboratory Results Test 01/04/25 06:34 01/02/25 13:00 White Blood Count 8.2 10^3/uL (4.4-10.8) Red Blood Count 5.25 10^6/uL (4.0-5.20) Hemoglobin 16.0 g/dL (12.2-16.2) Hematocrit 46.0 % (36.0-46.0) Mean Corpuscular Volume 87.5 fL (80.0-100.0) Mean Corpuscular Hemoglobin 30.4 pg (28.0-32.0) Mean Corpuscular Hemoglobin Concent 34.8 g/dL (32.0-36.0) Red Cell Distribution Width 12.9 % (11.8-14.3) Platelet Count 321 10^3/uL (140-450) Mean Platelet Volume 7.5 fL (6.9-10.8) Neutrophils (%) (Auto) 39.3 % (37.0-80.0) Lymphocytes (%) (Auto) 45.7 % (10.0-50.0) Monocytes (%) (Auto) 9.4 % (0.0-12.0) Eosinophils (%) (Auto) 5.0 % (0.0-7.0) Basophils (%) (Auto) 0.6 % (0.0-2.0) Neutrophils # (Auto) 3.2 10 ^3/uL (1.6-8.6) Lymphocytes # (Auto) 3.7 10 ^3/uL (0.4-5.4) Monocytes # (Auto) 0.8 10 ^3/uL (0-1.3) Eosinophils # (Auto) 0.4 10 ^3/uL (0-0.8) Basophils # (Auto) 0 10 ^3/uL (0-0.2) Nucleated Red Blood Cells 0.1 % Sodium Level 129 mmol/L (136-145) Potassium Level 3.9 mmol/L (3.5-5.1) Chloride Level 96 mmol/L (98-107) Carbon Dioxide Level 27 mmol/L (20-31) Anion Gap 6 (5-15) Blood Urea Nitrogen 12 mg/dL (9-23) Creatinine 0.71 mg/dL (0.550-1.02) Glomerular Filtration Rate Calc 93 mL/min (>90) BUN/Creatinine Ratio 16.9 (10.0-20.0) Serum Glucose 92 mg/dL (74-106) Calcium Level 9.4 mg/dL (8.7-10.4) Troponin I High Sensitivity 6 ng/L (</=34) Other Laboratory Tests 01/04/25 06:34 Brief Hx & Hospital Course: Shana Monae is a 69-year-old female with past medical history of anxiety and hypertension, who came to the hospital for high blood pressure. Patient states she came to the hospital due to her blood pressure remaining elevated. She also states that she has not been sleeping well due to too many thoughts in her head and anxiety. She went to her primary care provider a couple days ago who gave her a new prescription of Paroxetine. She states she does not like it and doesn't want to take it anymore. Patient was recently admitted for similar complaints. She did have a psych consult during that visit, and an ECHO completed that showed her EF about 55%. Initial sinus rhythm, nonspecific ST-T changes and troponins were unremarkable. chest x-ray revealed normal study. patient was treated initially with clonidine 0.1 mg followed by resumed home medication lisinopril 10 mg p.o. daily ,hydrochlorothiazide 12.5 mg daily, paroxetine for depression / anxiety. Patient mentioned some discomfort feeling taking paroxetin and did not want to take this medication, prescribed buspirone 10 mg p.o. b.i.d. for anxiety /depression. Today morning patient blood pressure was elevated and added amlodipine 5 mg p.o. daily and advised the patient to continue home medication in addition to amlodipine. was discussed with the patient and all questions were answered. discharged to home with amlodipine 5 mg p.o. daily, buspirone 10 mg p.o. b.i.d., advised to resume home medications. Patient was also advised to follow up with DC clinic in 1-2 weeks and also follow up with Psychiatry in 2 weeks. Physical examination: General Appearance: Alert, Oriented X3, Cooperative, No acute distress HEENT: Atraumatic, PERRLA, EOMI, Mucous membrane moist/pink Respiratory: Clear to auscultation, Normal air movement Cardiovascular: Regular rate, Normal S1, Normal S2, No murmurs, no chest wall tenderness Abdominal: Normal bowel sounds, Soft, No tenderness, No hepatospenomegaly, No masses Extremities: No clubbing, No cyanosis, No edema, Normal pulses, No tenderness/swelling Skin: No rashes, No breakdown, No significant lesion Neuro: Normal gait, Normal speech, Strength at 5/5 X4 ext, Normal tone, Sensation intact, Cranial nerves 3-12 NL, Reflexes 2+ Psych/Mental Status: Mental status NL, Mood NL Consults/Reason for consult No consultation was done Operations or Procedures CHEST RADIOGRAPH Indication: sob Technique: Single frontal view of the chest was obtained COMPARISON: XY CHEST PORTABLE on DOS: 12/21/24, XY CHEST PORTABLE on DOS: 09/16/24, XY CHEST PORTABLE on DOS: 03/15/24, XY CHEST PORTABLE on DOS: 03/11/24, XY CHEST PORTABLE on DOS: 03/08/24 FINDINGS: Lines and Tubes: None Lungs: Multifocal airspace disease chronic fibrotic changes. Pleura: No effusion. No pneumothorax. Cardiomediastinal contours: Unremarkable Bones: Unremarkable IMPRESSION: Chronic fibrotic changes with probable superimposed multifocal airspace disease Condition at Discharge: Stable Final Diagnosis/Problems List Hypertensive Urgency History of depression/anxiety Asymptomatic hyponatremia Discharge Disposition: Home Discharge Instruct/Medications Diet: Cardiac 2g Na,low cholest Activity: No Restrictions, As Tolerated Follow Up/Referral: Follow up with DC clinic in 1 week. Folow up with Psychiatry in 1 to 2 weeks. Medications: As per EMR Scheduled Alprazolam (Alprazolam), 0.25 MG GT BID, (Reported) Amlodipine Besylate (Amlodipine Besylate), 1 TAB PO DAILY Buspirone HCl (Buspirone HCl), 10 MG PO BID Lisinopril & Hydrochlorothiazi (Lisinopril/Hydrochlorothi), 1 TAB PO DAILY, (Reported) Discontinued Medications Amoxicillin & Pot Clavulanate (Augmentin Tablet), 875 MG PO BID Benzonatate (Benzonatate), 1-2 CAP PO TID, (Reported) Lisinopril (Lisinopril), 1 TAB PO DAILY, (Reported) Paroxetine Hydrochloride (Paroxetine Hydrochloride), 1 TAB PO DAILY, (Reported) Discharge Statement: "Patient was advised to return to the ER or call 911 if any headaches, dizziness, shortness of breath, chest pain, abdominal pain, bleeding, fevers, or worsening of medical condition. Patient was counseled about treatment plan, medications, possible side effects, patientverbalized understanding. All questions were answered to the best of my ability. This discharge took greater then 30 minutes in planning, reviewing documentation, counseling the patient, and discussing with other team members." ASSESSMENT ASSESSMENT Assessment Hypertensive Urgency Date of Service: Jan 04, 2025 Billing Provider: ENZO HAMMOND MD Common Visit Codes: [id number] DISCH DAY >30min JEFFERY CARMONA RESIDENT Jan 04, 2025 18:16 ENZO HAMMOND MD Jan 05, 2025 12:28
[2025-01-04] MEDS ORDERED: MELATONIN 5 MG TAB PO ONE (22:00)
== END 2025-01-04 16:00 | disposition home or self-care (01) | DRG 305 ==
LOC: ER 08:53 → OVERFLOW 12:45 → TELE-WESTW 22:40
PROVIDERS: ADMIT Student in an Organized Health Care Education/Training Program; ATTEND Emergency Medicine
DX: I16.0 Hypertensive urgency (principal); E87.1 Hypo-osmolality and hyponatremia; I10 Essential (primary) hypertension; F41.9 Anxiety disorder, unspecified; J98.4 Other disorders of lung
CPT/HCPCS: 36415; 71045; 80048; 84484; 85025; 87081; 96365; 96375; 99291; 99292; G0378; J1956

== ENCOUNTER → 2025-01-10 | Outpatient (CLI) | payer MEDICARE, MEDICAID ==
[~2025-01-10] MED LIST changes: +AMLO1TAB22 PO; -AUG875T PO; -BENZ100C97 PO; +BUSP10TA31 PO; +LISI-283 PO; -LISI10TA34 PO
[2025-01-10 08:19] LABS: Hematocrit 45.4 % (36.0-46.0); Hemoglobin 15.8 g/dL (12.2-16.2); Mean Corpuscular Hemoglobin 30.7 pg (28.0-32.0); Mean Corpuscular Volume 88.3 fL (80.0-100.0); Nucleated Red Blood Cells % 0.0 %
[2025-01-10 08:33] LABS: Alanine Aminotransferase 18 U/L (7-40); Albumin 4.4 g/dL (3.2-4.8); Alkaline Phosphatase 103 U/L (46-116); Anion Gap 8 (5-15); BUN/Creatinine Ratio 16.9 (10.0-20.0); Blood Urea Nitrogen 13 mg/dL (9-23); Calcium 9.8 mg/dL (8.7-10.4); Carbon Dioxide 29 mmol/L (20-31); Chloride 102 mmol/L (98-107); Glucose 97 mg/dL (74-106); Magnesium 2.1 mg/dL (1.6-2.6); Potassium 4.2 mmol/L (3.5-5.1); Sodium 139 mmol/L (136-145); Total Protein 7.4 g/dL (5.7-8.2); Triglycerides 64 mg/dL (< 150)
[2025-01-10 08:34] LABS: Bilirubin, Total 0.7 mg/dL (0.2-1.0); Cholesterol 123 mg/dL (< 200); HDL Cholesterol 51 mg/dL (40-59)
== END | disposition home or self-care (01) ==
LOC: LAB 07:10
PROVIDERS: ATTEND Internal Medicine
DX: I10 Essential (primary) hypertension (principal); E55.9 Vitamin D deficiency, unspecified; Z79.899 Other long term (current) drug therapy
CPT/HCPCS: 36415; 80053; 80061; 82306; 82607; 83036; 83735; 84443; 85025

== ENCOUNTER 2025-04-22 01:55 | Emergency (ER) | payer MEDICARE, MEDICAID ==
[~2025-04-22] VITALS: Ht 152.4 cm; Wt 63.1 kg
--- NOTE | 2025-04-22 02:33 | ED.PDOC ---
HPI Comments 70-year-old female who came to ER for chest pains. Patient has history of hypertension anxiety. States for the past 3 days she has been having episodes of left-sided chest pains, pressure, intermittent, sharp, radiating to her upper back, and associated nausea. Persistence prompted check up to the ER Chief Complaint: Chest Pain Time Seen by MD: 02:32 Primary Care Provider: ? Reviewed Notes: Nurses Notes Allergies: Coded Allergies: NO KNOWN ALLERGIES (Unverified , 10/14/15) Home Meds Active Scripts Buspirone HCl (Buspirone HCl) 10 Mg Tab, 10 MG PO BID for 30 Days, #60 TAB Prov:JEFFERY CARMONA RESIDENT 01/04/25 Amlodipine Besylate (Amlodipine Besylate) 5 Mg Tab, 1 TAB PO DAILY for 30 Days, #30 TAB 5 Refills Prov:JEFFERY CARMONA RESIDENT 01/04/25 Reported Medications Lisinopril & Hydrochlorothiazi (Lisinopril/Hydrochlorothi) 1 Tab Tab, 1 TAB PO DAILY 01/02/25 Alprazolam (Alprazolam) 0.25 Mg Tab, 0.25 MG GT BID, TAB 12/22/24 Information Source: Patient Mode of Arrival: Ambulatory Severity: Moderate Timing: Days Duration: Intermittent Location: Chest (L) Radiation: Back Quality: Pressure Onset: With Light Exertion Associated Signs and Symptoms: N/V Past Medical History PAST MEDICAL HISTORY: Anxiety, HTN Surgical History: Denies all surgeries STUDENT ADVISOR History: No Pertinent STUDENT ADVISOR History Family History Family History: Reviewed,noncontributory to illness Social History Smoker: Non-Smoker Alcohol: Denies ETOH Use Drugs: Denies Drug Use Lives In: Home Constitutional: denies: chills, diaphoresis, fatigue, fever, malaise, sweats, weakness, others EENTM: denies: blurred vision, double vision, ear bleeding, ear discharge, ear drainage, ear pain, ear ringing, eye pain, eye redness, hearing loss, mouth pain, mouth swelling, nasal discharge, nose bleeding, nose congestion, nose pain, photophobia, tearing, throat pain, throat swelling, voice changes, others Respiratory: denies: cough, hemoptysis, orthopnea, SOB at rest, shortness of breath, SOB with excertion, stridor, wheezing, others Cardiovascular: reports: chest pain; denies: dizzy spells, diaphoresis, Dyspnea on exertion, edema, irregular heart beat, left arm pain, lightheadedness, palpitations, PND, syncope, others Gastrointestinal: denies: abdomen distended, abdominal pain, blood streaked bowels, constipated, diarrhea, dysphagia, difficulty swallowing, hematemesis, melena, nausea, poor appetite, poor fluid intake, rectal bleeding, rectal pain, vomiting, others Genitourinary: denies: abnormal vagina bleeding, burning, dyspareunia, dysuria, flank pain, frequency, hematuria, incontinence, pain, , vagina discharge, urgency, others Neurological: denies: dizziness, fainting, headache, left sided numbness, left sided weakness, numbness, paresthesia, pre-existing deficit, right sided numbness, right sided weakness, seizure, speech problems, tingling, tremors, weakness, others Musculoskeletal: denies: back pain, gout, joint pain, joint swelling, muscle pain, muscle stiffness, neck pain, others Integumetry: denies: bruises, change in color, change in hair/nails, dryness, laceration, lesions, lumps, rash, wounds, others Allergic/Immunocompromised: denies: Difficulty Healing, Frequent Infections, Hi ves, Itching, others Hematologic/Lymphatic: denies: anemia, blood clots, easy bleeding, easy bruising, swollen glands, others Endocrine: denies: excessive hunger, excessive sweating, excessive thirst, excessive urination, flushing, intolerance to cold, intolerance to heat, unexplained weight gain, unexplained weight loss, others Psychiatric: denies: anxiety, bipolar disorder, depression, hopeless, panic disorder, schizophrenia, sleepless, suicidal, others Physical Exam General Appearance: No Apparent Distress, Normal HEENT: Normal ENT Inspection, Pharynx Normal, TMs Normal Neck: Full Range of Motion, Non-Tender, Normal, Normal Inspection Respiratory: Chest Non-Tender, Lungs Clear, No Accessory Muscle Use, No Respiratory Distress, Normal Breath Sounds Cardiovascular: No Edema, No JVD, No Murmur, No Gallop, Normal Peripheral P ulses, Regular Rate/Rhythm Breast Exam: Deferred Gastrointestinal: No Organomegaly, Non Tender, No Pulsatile Mass, Normal Bowel Sounds, Soft Genitalia: Deferred Pelvic: Deferred Rectal: Deferred Extremities: No calf tenderness, Normal capillary refill, Normal inspection, Normal range of motion, Non-tender, No pedal edema Musculoskeletal : Apperance: Normal Neurologic: Alert, radial router operator II-XII nml as Tested, No Motor Deficits, Normal Affect, Normal Mood, No Sensory Deficits Cerebellar Function: Normal Reflexes: Normal Skin: Dry, Normal Color, Warm Lymphatic: No Adenopathy EKG EKG : Pulse Rate (adult): 106 Cardiac Rhythm: ST Hypertrophy: LAE Was a procedure done? Was a procedure done?: No CP Differential Dx Differential Diagnosis: Angina, Anxiety / Panic Attack Differential Diagnosis: Angina, Chest Wall Pain, Costochondritis, Esophageal reflux/spasm, Gastritis, Myocardial Infarction X-Ray, Labs, Meds, VS Vital Signs Date Time Temp Pulse Resp B/P (MAP) Pulse Ox O2 Delivery O2 Flow Rate FiO2 04/22/25 04:38 82 20 97 Room Air 04/22/25 04:38 97.9 86 20 158/82 (107) 96 97.9 04/22/25 02:54 97 04/22/25 02:33 106 04/22/25 01:58 106 04/22/25 01:56 98.9 112 16 187/99 96 98.9 Lab Test 04/22/25 03:05 04/22/25 02:09 Range/Units Troponin I High Sensitivity 6 5 </=34 ng/L White Blood Count 8.4 4.4-10.8 10^3/uL Red Blood Count 5.30 H 4.0-5.20 10^6/uL Hemoglobin 15.9 12.2-16.2 g/dL Hematocrit 45.5 36.0-46.0 % Mean Corpuscular Volume 85.9 80.0-100.0 fL Mean Corpuscular Hemoglobin 29.9 28.0-32.0 pg Mean Corpuscular Hemoglobin Concent 34.8 32.0-36.0 g/dL Red Cell Distribution Width 13.2 11.8-14.3 % Platelet Count 302 140-450 10^3/uL Mean Platelet Volume 8.5 6.9-10.8 fL Neutrophils (%) (Auto) 54.6 37.0-80.0 % Lymphocytes (%) (Auto) 34.0 10.0-50.0 % Monocytes (%) (Auto) 8.3 0.0-12.0 % Eosinophils (%) (Auto) 2.6 0.0-7.0 % Basophils (%) (Auto) 0.5 0.0-2.0 % Neutrophils # (Auto) 4.6 1.6-8.6 10 ^3/uL Lymphocytes # (Auto) 2.9 0.4-5.4 10 ^3/uL Monocytes # (Auto) 0.7 0-1.3 10 ^3/uL Eosinophils # (Auto) 0.2 0-0.8 10 ^3/uL Basophils # (Auto) 0 0-0.2 10 ^3/uL Nucleated Red Blood Cells 0.3 % Prothrombin Time 11.0 9.3-11.8 sec Prothrombin Time INR 1.04 0.9-1.15 Activated Partial Thromboplast Time 27.6 24.5-34.5 SEC D-Dimer, Quantitative 0.21 0.0-0.49 mg/L FEU Sodium Level 126 L 136-145 mmol/L Potassium Level 3.5 3.5-5.1 mmol/L Chloride Level 90 L 98-107 mmol/L Carbon Dioxide Level 28 20-31 mmol/L Anion Gap 8 5-15 Blood Urea Nitrogen 7 L 9-23 mg/dL Creatinine 0.69 0.550-1.02 mg/dL Glomerular Filtration Rate Calc 94 >90 mL/min BUN/Creatinine Ratio 10.1 10.0-20.0 Serum Glucose 123 H 74-106 mg/dL Calcium Level 9.1 8.7-10.4 mg/dL Magnesium Level 2.1 1.6-2.6 mg/dL Total Bilirubin 1.1 H 0.2-1.0 mg/dL Aspartate Amino Transferase (AST) 26 13-40 U/L Alanine Aminotransferase (ALT) 17 7-40 U/L Alkaline Phosphatase 130 H 46-116 U/L B-Type Natriuretic Peptide 61.96 0-100 pg/mL Total Protein 8.0 5.7-8.2 g/dL Albumin 4.4 3.2-4.8 g/dL Thyroid Stimulating Hormone (TSH) 1.49 0.55-4.78 uIU/mL Free Thyroxine (T4) Calculated Pending Time of 1ST Reevaluation: 02:20 Reevaluation 1ST: Unchanged Patient Education/Counseling: Diagnosis, Treatment Family Education/Counseling: No Family Present SEPSIS Sepsis Screen Date sepsis recognized/suspect: Apr 22, 2025 Time Sepsis recognized/suspect: 0158 Recent Procedure: No On Antibiotic Therapy: No Respiratory Rate >20: No Heart Rate >90: No Temp<36 C (96.8 F) or >38.3 C: No SBP <90 or MAP <65 mmHG: No New Acute Mental Status Change: No Is the patient on CPAP, BIPAP,: No Physician Orders Electrocardigram (04/22/25 03:06) Free T4 (Free Thyroxine) (04/22/25 02:15) Chest Xray 1 View (04/22/25 02:15) Vital Signs Date Time Temp Pulse Resp B/P (MAP) Pulse Ox O2 Delivery O2 Flow Rate FiO2 04/22/25 04:38 82 20 97 Room Air 04/22/25 04:38 97.9 86 20 158/82 (107) 96 97.9 04/22/25 02:54 97 04/22/25 02:33 106 04/22/25 01:58 106 04/22/25 01:56 98.9 112 16 187/99 96 98.9 Laboratory Tests Test 04/22/25 02:09 White Blood Count 8.4 10^3/uL (4.4-10.8) Departure 1 Departure Time of Disposition: 04:30 Impression: Primary Impression: Palpitation Disposition: 01 HOME / SELF CARE / HOMELESS Condition: Stable Discharged With: Self Critical Care Note Critical Care Time?: No Stability Stability form required: No Heart Score Heart Score: Heart Score Response (Comments) Value History N/A 0 EKG N/A 0 Age N/A 0 Risk Factors N/A 0 Troponin N/A 0 Total 0 I personally scribed for WERNER HEATON MD ([email or web address]) on 04/22/25 at 02:33. Electronically submitted by Junior Owens ([email or web address]). I personally scribed for WERNER HEATON MD ([email or web address]) on 04/22/25 at 02:33. Electronically submitted by Junior Owens ([email or web address]). WERNER HEATON MD Apr 22, 2025 02:33
[2025-04-22 02:38] LABS: Hematocrit 45.5 % (36.0-46.0); Hemoglobin 15.9 g/dL (12.2-16.2); Mean Corpuscular Hemoglobin 29.9 pg (28.0-32.0); Mean Corpuscular Volume 85.9 fL (80.0-100.0); Nucleated Red Blood Cells % 0.3 %
[2025-04-22 02:54] LABS: INR 1.04 (0.9-1.15); Partial Thromboplastin Time 27.6 SEC (24.5-34.5); Prothrombin Time 11.0 sec (9.3-11.8)
--- NOTE | 2025-04-22 02:55 | ECG ---
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
[2025-04-22 02:59] LABS: Alanine Aminotransferase 17 U/L (7-40); Albumin 4.4 g/dL (3.2-4.8); Anion Gap 8 (5-15); BUN/Creatinine Ratio 10.1 (10.0-20.0); Bilirubin, Total 1.1 mg/dL (0.2-1.0); Calcium 9.1 mg/dL (8.7-10.4); Carbon Dioxide 28 mmol/L (20-31); Magnesium 2.1 mg/dL (1.6-2.6); Total Protein 8.0 g/dL (5.7-8.2)
[2025-04-22 03:02] LABS: Alkaline Phosphatase 130 U/L (46-116); Blood Urea Nitrogen 7 mg/dL (9-23); Chloride 90 mmol/L (98-107); Glucose 123 mg/dL (74-106); Potassium 3.5 mmol/L (3.5-5.1); Sodium 126 mmol/L (136-145)
--- NOTE | 2025-04-22 03:16 | DVH ---
CHEST RADIOGRAPH Indication: SOB Technique: Single frontal view of the chest was obtained COMPARISON: XY CHEST PORTABLE on DOS: 01/02/25, XY CHEST PORTABLE on DOS: 12/21/24, XY CHEST PORTABLE on DOS: 09/16/24, XY CHEST PORTABLE on DOS: 03/15/24, CT CT ANGIO CHEST CONTRAST on DOS: 03/12/24 FINDINGS: Lines and Tubes: None Lungs: Predominantly chronic appearing diffuse fibrotic and interstitial pulmonary markings throughou t both lungs without evidence of focal consolidation. Diffuse superimposed pulmonary airspace disease can not be completely excluded. Pleura: No effusion. No pneumothorax. Cardiomediastinal contours: Unremarkable Bones: Unremarkable IMPRESSION: 1. Predominantly Chronic appearing diffuse fibrotic and interstitial pulmonary markings throughout les th lungs without evidence of focal consolidation. 2. Diffuse superimposed pulmonary airspace disease can not be completely excluded.
[2025-04-22 04:38] VITALS: BP 158/82; PULSE 82; RESP 20; TEMP 97.9; O2SAT 97
--- NOTE | 2025-04-24 00:22 | ECG ---
[facility] Test Date: 2025-04-22 Test Time: 01:58:38 Pat Name: FARZANA ESCOBAR Department: ED Room: Gender: F Dynamicist: OR : 1955 Requested By: WERNER HEATON Order Number: [id number] Reading MD: Gerber Dunaway Measurements Intervals [place] Rate: 106 P: 55 VA: 188 QRS: 46 QRSD: 94 T: 62 QT: 336 QTc: 447 Interpretive Statements Sinus tachycardia LAE, consider biatrial enlargement RSR' in V1 or V2, right VCD or RVH Electronically Signed On 04-30-2025 13:39:25 PDT by Gerber Dunaway Please click the below link to view image of tracing.
== END 2025-04-22 04:43 | disposition home or self-care (01) ==
LOC: ER 01:55
DX: R00.2 Palpitations (principal); R07.89 Other chest pain; R11.0 Nausea; M54.6 Pain in thoracic spine; I10 Essential (primary) hypertension; F41.9 Anxiety disorder, unspecified; Z79.899 Other long term (current) drug therapy
CPT/HCPCS: 36415; 71045; 80053; 83735; 83880; 84439; 84443; 84484; 85025; 85379; 85610; 85730; 93005